=== PATIENT | female | born 2000 | race Caucasian/White ===

== ENCOUNTER 2018-10-12 10:40 | Inpatient (IN) | payer BC, MEDICAID ==
[2018-10-12] MEDS ORDERED: Sodium Chloride 0.9% 10 ML Syringe FLUSH PRN ×2 (11:14→13:09)
[2018-10-12] MEDS: Lactated Ringers 1,000 ML IV ONE ×3 (11:20→13:26)
[2018-10-12] MEDS ORDERED: Amoxicillin 875 MG Tab PO ONE (12:50)
[2018-10-12] MEDS ORDERED: cefTRIAXone 1 GM in Sodium Chloride 0.9% 50 ML IV ONE (13:00)
[2018-10-12] MEDS ORDERED: fentaNYL 100 MCG/2 ML SDV IVPUSH ONE (13:07)
[2018-10-12] MEDS ORDERED: Acetaminophen 325 MG Tab PO PRN (13:09)
[2018-10-12] MEDS ORDERED: Ondansetron 4 MG Tab.DIS PO PRN (13:09)
--- NOTE | 2018-10-12 13:26 | PCM.LDHP ---
L&D History of Present Illness - General Date of Service: 10/12/18 (childbirth) Admit Problem/Dx: Patient Status Order with Admit Dx/Problem 10/12/18 13:09 Patient Status [ADT] Routine Admission Diagnosis/Problem Admission Diagnosis/Problem Labor established Source of Information: Patient History Limitations: Reports: No Limitations - History of Present Illness Timing/Duration: Reports: minutes: (2-3), getting worse Location, : Reports: Abdomen Quality: Reports: Pressure Severity: Severe Improves with: Reports: Movement Worsens with: Reports: None - Related Data Allergies/Adverse Reactions: Allergies Allergy/AdvReac Type Severity Reaction Status Date / Time Corticosteroids Allergy Hives Verified 06/19/18 13:08 (Glucocorticoids) Home Medications: Home Meds [id number]/Dha/Fish Oil [ Gummies] 1 tab PO DAILY 04/17/18 [ History] Albuterol/Ipratropium [Combivent Respimat] 1 puff INH Q4HR PRN 06/19/18 [History ] Cetirizine [ZyrTEC] 10 mg PO BEDTIME PRN 06/19/18 [History] Sertraline [Zoloft] 50 mg PO DAILY 06/19/18 [History] hydrOXYzine HCl [hydrOXYzine] 25 mg PO BEDTIME 10/11/18 [History] Past Medical History HEENT History: Reports: Allergic Rhinitis Respiratory History: Reports: Asthma 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: , Other (See Below) : 1 Para: 0 LMP (Approximate): Other OB/BYN History: ovarian cysts Musculoskeletal History: Reports: Fracture Neurological History: Reports: Concussion Psychiatric History: Reports: Anxiety, Depression, Psych Hospitalization(s), Suicide Attempt, Suicidal Ideation, Other (See Below) Other Psychiatric History: borderline personality Dermatologic History: Reports: Urticaria - Infectious Disease History Infectious Disease History: Reports: None - Past Surgical History Respiratory Surgical History: Reports: None Neurological Surgical History: Reports: None Musculoskeletal Surgical History: Reports: None Dermatological Surgical History: Reports: None Social & Family History - Family History Family Medical History: Noncontributory - Caffeine Use Caffeine Use: Reports: Coffee Other Caffeine Use: 1 cup a day H&P Review of Systems - Review of Systems: Review Of Systems: See Below General: Reports: No Symptoms HEENT: Reports: No Symptoms Pulmonary: Reports: No Symptoms Cardiovascular: Reports: No Symptoms Gastrointestinal: Reports: No Symptoms Genitourinary: Reports: No Symptoms Musculoskeletal: Reports: No Symptoms Skin: Reports: No Symptoms Psychiatric: Reports: No Symptoms Neurological: Reports: No Symptoms Hematologic/Lymphatic: Reports: No Symptoms Immunologic: Reports: No Symptoms L&D Exam - Exam Exam: See Below - Vital Signs Vital Signs: Last Vital Signs Temp 98.9 F 10/12/18 12:00 Pulse 87 10/12/18 12:00 Resp 18 10/12/18 12:00 BP 149/91 H 10/12/18 12:00 Pulse Ox 97 10/12/18 12:00 - OB Specific Contraction Duration (sec): 30-60 Contraction Frequency (min): 3-4 Contraction Intensity: Moderate Movement: Active Heart Tones: Present Heart Tones per Min: 160 Heart Rate (FHR) Variability: Moderate (6-25 bmp) Presentation: Vertex Estimated Weight: 7-8 pounds - Olvera Score Olvera Score Cervix Position: Midposition Olvera Score Consistency: Soft Olvera Score Effacement: >80% Olvera Score Dilation: 3-4 cm Olvera Score Infant's Station: -1 ,0 Olvera Score Total: 10 - Exam General: Alert, Oriented HEENT: PERRLA Neck: Supple Lungs: Clear to Auscultation, Normal Respiratory Effort Cardiovascular: Regular Rate, Regular Rhythm GI/Abdominal Exam: Soft Genitourinary: Cervical dilitation, Enlarged uterus Back Exam: Normal Inspection, Full Range of Motion Extremities: Normal Inspection, No Pedal Edema Skin: Warm, Dry, Intact Neurological: Cranial Nerves Intact, Reflexes Equal Bilateral Psychiatric: Alert, Normal Affect, Normal Mood - Patient Data Lab Results Last 24 hrs: Laboratory Results - last 24 hr 10/12/18 Range/Units 10:49 Urine Color Yellow Urine Appearance Cloudy Urine pH 6.0 (4.5-8.0) Ur Specific [place] 1.020 (1.008-1.030) Urine Protein Negative (NEGATIVE) mg/dL Urine Glucose (UA) Normal (NEGATIVE) mg/dL Urine Ketones Negative (NEGATIVE) mg/dL Urine Occult Blood Large (NEGATIVE) Urine Nitrite Negative (NEGATIVE) Urine Bilirubin Negative (NEGATIVE) Urine Urobilinogen Normal (NORMAL) mg/dL Ur Leukocyte Esterase Large (NEGATIVE) Urine RBC 10-20 H (0-5) Urine WBC 40-50 H (0-5) Ur Epithelial Cells Moderate Amorphous Sediment Not seen Urine Bacteria Moderate Urine Mucus Few - Problem List (1) First stage of labor established SNOMED Code(s): 294496585 ICD Code: [id number] - Status: Acute Current Visit: Yes (2) SNOMED Code(s): 85336985 ICD Code: Z34.90 - ENCNTR FOR SUPRVSN OF NORMAL , UNSP, UNSP TRIMESTER Status: Acute Current Visit: Yes Qualifiers: Weeks of gestation: 40 weeks Qualified Code(s): Z3A.40 - 40 weeks gestation of Problem List Initiated/Reviewed/Updated: Yes Orders Last 24hrs: Active Orders 24 hr Category Date Time Status Patient Status [ADT] Routine ADT 10/12/18 13:09 Ordered Antiembolic Devices [RC] .Routine Care 10/12/18 13:12 Ordered Communication Order [RC] ASDIRECTED Care 10/12/18 13:09 Ordered Dietary Supplements [RC] BIDMEALS Care 10/12/18 12:52 Active Heart Tones [RC] PER UNIT ROUTINE Care 10/12/18 13:09 Ordered Non Stress Test [RC] Click to Edit Care 10/12/18 13:09 Ordered May Shower [RC] ASDIRECTED Care 10/12/18 13:09 Ordered Notify Provider Vital Signs [RC] PRN Care 10/12/18 13:09 Ordered Notify Provider [RC] PRN Care 10/12/18 13:09 Ordered OB Check [OM.PC] Click to Edit Care 10/12/18 10:48 Ordered PCEA Epidural [RC] ASDIRECTED Care 10/12/18 13:14 Ordered PCEA Epidural [RC] ASDIRECTED Care 10/12/18 13:14 Ordered Peripheral IV Care [RC] . DIRECTED Care 10/12/18 11:14 Active Up ad Karie [RC] ASDIRECTED Care 10/12/18 13:09 Ordered VTE/DVT Education [RC] Click to Edit Care 10/12/18 13:12 Ordered Vital Signs [RC] PER UNIT ROUTINE Care 10/12/18 13:09 Ordered Clear Liquid Diet [DIET] Diet 10/12/18 Dinner Ordered CBC W/O DIFF,HEMOGRAM [HEME] Routine Lab 10/12/18 13:09 Ordered Acetaminophen [Tylenol] Med 10/12/18 13:09 Ordered 650 mg PO Q4H PRN Ondansetron [Zofran ODT] Med 10/12/18 13:09 Ordered 4 mg PO Q4H PRN Oxytocin/Normal Saline [Pitocin in NS 20 Units/1,000 ML Med 10/12/18 13:15 Ordered ] 20 unit in 1,000 ml IV ONETIME Oxytocin/Normal Saline [Pitocin in NS 20 Units/1,000 ML Med 10/12/18 13:15 Ordered ] 20 unit in 1,000 ml IV TITRATE Sodium Chloride 0.9% [Saline Flush] Med 10/12/18 11:14 Active 10 ml FLUSH ASDIRECTED PRN Sodium Chloride 0.9% [Saline Flush] Med 10/12/18 13:09 Ordered 10 ml FLUSH ASDIRECTED PRN cefTRIAXone [Rocephin] 1 gm Med 10/12/18 13:00 Active Sodium Chloride 0.9% [Normal Saline] 50 ml IV ONETIME DVT/VTE Prophylaxis Reflex [OM.PC] Routine Oth 10/12/18 13:09 Ordered Epidural Catheter Management [OM.PC] Urgent Oth 10/12/18 13:14 Ordered Peripheral IV Insertion Adult [OM.PC] Routine Oth 10/12/18 11:14 Ordered Saline Lock Insert [OM.PC] Routine Oth 10/12/18 13:09 Ordered Resuscitation Status Routine Resus Stat 10/12/18 13:09 Ordered Medication Orders Acetaminophen (Tylenol) 650 mg PO Q4H PRN PRN Reason: Pain (Mild 1-3) and fever Ceftriaxone Sodium 1 gm/ (Sodium Chloride) 50 mls @ 100 mls/hr IV ONETIME ONE Stop: 10/12/18 13:29 Oxytocin/Sodium Chloride (Pitocin In Ns 20 Units/1,000 Ml) 20 unit in 1,000 mls @ 6 mls/hr IV TITRATE GAVINO; Protocol Oxytocin/Sodium Chloride (Pitocin In Ns 20 Units/1,000 Ml) 20 unit in 1,000 mls @ 999 mls/hr IV ONETIME ONE; Protocol Stop: 10/12/18 14:15 Ondansetron HCl (Zofran Odt) 4 mg PO Q4H PRN PRN Reason: Nausea/Vomiting Sodium Chloride (Saline Flush) 10 ml FLUSH ASDIRECTED PRN PRN Reason: Keep Vein Open Sodium Chloride (Saline Flush) 10 ml FLUSH ASDIRECTED PRN PRN Reason: Keep Vein Open Assessment/Plan Comment:: 10/12/18 This 17 year old G1 presented with increasing contractions. She is 40 3/7 weeks based on LMP and US, DEEPIKA 10/09/18. vaginal check at 1222 3/80/-1. Over the past hour contractions have gotten increasingly stronger. Labs: ABO A pos, HIV neg, Rubella immune. Plan will keep and tristan to observation Epidural then augment contractions with pitocin Anticipate a vaginal delivery later today. HGB and PLT pending
[2018-10-12] MEDS ORDERED: ePHEDrine 50 MG/ML SDV ONE (13:39)
[2018-10-12] MEDS ORDERED: fentaNYL 100 MCG/2 ML SDV ONE (14:01)
[2018-10-12] MEDS ORDERED: Ropivacaine 100 ML ONE (14:01)
[2018-10-12] MEDS ORDERED: Lactated Ringers 1,000 ML IV SCH (14:15)
--- NOTE | 2018-10-12 15:22 | PROC ---
DATE OF PROCEDURE: 10/12/2018 NAME OF PROCEDURE: Placement of labor epidural. INDICATION: This 17-year-old is in labor, and I have been asked to place an epidural. She is dilated to 4. We discussed risks and benefits of the procedure. She is ready to proceed. DESCRIPTION OF PROCEDURE: Her back was prepped with Betadine x3. A 2 mL skin wheal of 1% Xylocaine was injected at approximately L3-L4 and another 2 to 3 mL into the deeper tissue. A 17-gauge Tuohy needle was placed in the epidural space at that level using a loss of resistance technique. The loss of resistance was excellent. She was then given a 7 mL bolus that included 100 mcg of fentanyl and 5 mL of 1.5% Xylocaine with epinephrine. She showed no signs of problems with this test dose. An epidural catheter was then threaded approximately 3 to 4 cm into the epidural space, and the needle was removed over the catheter. The catheter was brought up over her right shoulder and taped securely in place. She was then placed on a ropivacaine infusion of 0.2% at 12 mL. The patient tolerated the procedure well. Currently, her vital signs are stable. Her color is pink. She is alert, oriented, and shows no signs of complications. Anesthesia will be called if further assistance is needed. Jake Carney CRNA /[id number]
[2018-10-12] MEDS ORDERED: diphenhydrAMINE 50 MG/ML SDV IVPUSH PRN (18:38)
[2018-10-12] MEDS ORDERED: Naloxone 0.4 MG/ML SDV IVPUSH PRN (18:38)
[2018-10-12] MEDS ORDERED: Ropivacaine 100 ML EPIDUR SCH (18:38)
--- NOTE | 2018-10-12 18:56 | PCM.PNLD ---
Labor Progress Note - VS & Meds Vital Signs: Last Vital Signs Temp 98.9 F 10/12/18 17:10 Pulse 79 10/12/18 14:35 Resp 18 10/12/18 14:35 BP 125/72 10/12/18 14:35 Pulse Ox 97 10/12/18 14:35 Active Medications: Current Medications Acetaminophen (Tylenol) 650 mg PO Q4H PRN PRN Reason: Pain (Mild 1-3) and fever Diphenhydramine HCl (Benadryl) 50 mg IVPUSH Q6H PRN PRN Reason: ITCHING Oxytocin/Sodium Chloride (Pitocin In Ns 20 Units/1,000 Ml) 20 unit in 1,000 mls @ 6 mls/hr IV TITRATE GAVINO; Protocol Last Titration: 10/12/18 18:07 Dose: 7 munits/min, 21 mls/hr Lactated Ringer's (Ringers, Lactated) 1,000 mls @ 100 mls/hr IV ASDIRECTED GAVINO Ropivacaine (Naropin 0.2%) 100 mls @ 0 mls/hr EPIDUR ASDIRECTED GAVINO; Protocol Naloxone HCl 0.4 mg/ Sodium (Chloride) 1,001 mls @ 0 mls/hr IV ASDIRECTED PRN; Protocol PRN Reason: ITCHING Naloxone HCl (Narcan) 0.1 mg IVPUSH Q5M PRN PRN Reason: IF RESP RATE LESS THAN 6 Ondansetron HCl (Zofran Odt) 4 mg PO Q4H PRN PRN Reason: Nausea/Vomiting Sodium Chloride (Saline Flush) 10 ml FLUSH ASDIRECTED PRN PRN Reason: Keep Vein Open Sodium Chloride (Saline Flush) 10 ml FLUSH ASDIRECTED PRN PRN Reason: Keep Vein Open Discontinued Medications Ephedrine Sulfate (Ephedrine Sulfate) Confirm Administered Dose 50 mg .ROUTE .STK-MED ONE Stop: 10/12/18 13:40 Fentanyl (Sublimaze) 100 mcg IVPUSH ONETIME ONE Stop: 10/12/18 13:08 Last Admin: 10/12/18 13:13 Dose: 100 mcg Fentanyl (Sublimaze) Confirm Administered Dose 100 mcg .ROUTE .STK-MED ONE Stop: 10/12/18 14:02 Lactated Ringer's (Ringers, Lactated) 1,000 mls @ 999 mls/hr IV BOLUS ONE Stop: 10/12/18 12:14 Last Admin: 10/12/18 13:26 Dose: 999 mls/hr Ceftriaxone Sodium 1 gm/ (Sodium Chloride) 50 mls @ 100 mls/hr IV ONETIME ONE Stop: 10/12/18 13:29 Last Admin: 10/12/18 13:26 Dose: 100 mls/hr Oxytocin/Sodium Chloride (Pitocin In Ns 20 Units/1,000 Ml) 20 unit in 1,000 mls @ 999 mls/hr IV ONETIME ONE; Protocol Stop: 10/12/18 14:15 Ropivacaine (Naropin 0.2%) Confirm Administered Dose 100 mls @ as directed .ROUTE .STK-MED ONE Stop: 10/12/18 14:02 - Uterine Contractions Uterine Monitoring Mode: External Iselin Contraction Frequency (min): 2-2.5 Contraction Duration (sec): 30-40 Contraction Intensity: Moderate Uterine Resting Tone: Soft - Monitoring Monitor Mode: Doppler/Auscultation Heart Rate (FHR) Baseline: 145 Heart Rate (FHR) Variability: Moderate (6-25 bmp) Accelerations: Present, 15x15 Decelerations: None Strip Review: Category I - Vaginal Exam Dilation (cm): 5 Effacement (Percent): 90/100 Station: 0 Cervical Position: Anterior Sterile Vaginal Exam Performed By: Sola Hidalgo Vaginal Exam Comment: bloody show, tried AROM - Labor Progress (Free Text) Labor Progress: 10/12/18 Making slow steady progress. Pitocin infusing contractions every 1-2 minutes. Epidural working well. planning vaginal delivery later this evening.
[2018-10-12] MEDS ORDERED: Lidocaine 1% 50 ML MDV ONE (21:11)
[2018-10-12] MEDS ORDERED: Oxytocin/Normal Saline 0 UNIT/0 ML BAG ONE (21:11)
[2018-10-12] MEDS ORDERED: Misoprostol 200 MCG Tab ONE (21:35)
[2018-10-12] MEDS ORDERED: Methylergonovine 0.2 MG/1 ML Amp ONE (21:35)
[2018-10-12] MEDS ORDERED: Carboprost Tromethamine 250 MCG/1 ML Amp ONE (21:35)
[2018-10-12] MEDS ORDERED: Methylergonovine 0.2 MG/1 ML Amp IM STA (21:44)
[2018-10-12] MEDS ORDERED: Docusate Sodium 100 MG Cap PO PRN (22:22)
[2018-10-12] MEDS ORDERED: Benzocaine 20% Top Spray 56 GM Bottle TOP PRN (22:22)
[2018-10-12] MEDS ORDERED: Hydrocortisone 2.5% Crm 30 GM Tube TOP PRN (22:22)
[2018-10-12] MEDS ORDERED: Acetaminophen 325 MG Tab, 50 Tab Bulk Bottle PO PRN (22:22)
[2018-10-12] MEDS ORDERED: Ibuprofen 200 MG Tab, 24 Tab Bulk Bottle PO PRN (22:22)
[2018-10-12] MEDS ORDERED: Witch Hazel Medicated Pads 100/Jar TOP PRN (22:22)
--- NOTE | 2018-10-12 22:40 | PCM.DEL ---
L & D Note - General Info Date of Service: 10/12/18 (vaginal delivery) Mother's Due Date: 10/09/18 - Delivery Note Labor: Spontaneous Delivery Outcome: Livebirth Delivery Method: Spontaneous Vaginal Delivery-Single Delivery Mode: Spontaneous Presentation: Right Occiput Anterior (SETH) Nuchal Cord: Present (cord double clamped and cut, unable to reduce manually ) Anesthesia Type: Epidural Amniotic Fluid Description: Meconium Stained Episiotomy Type: None Laceration: 2nd Degree, Labial, Sulcus Suture type: Vicryl Suture size: 3-0 Placenta: Intact, Spontaneous Cord: 3 Vessels Estimated Blood Loss: 500 Resuscitation Needed: No [place]: Stimulated, Warmed, [place] Used Provider: Sola Hidalgo Score 1 min: 7 (2 tone, 1 color) Score 5 min: 8 (1 tone, 1 color) Second Stage Interventions: Reports: Second Nurse Reviewed Heart Tones, Encouragement Given, Pushing Effectively, Pushing, McRobert's Position Delivery Comments (Free Text/Narrative):: 10/12/18 This 17 year old G1 now P1 who is 40 3/7 weeks gestation presented in early labor this morning. /-1 at 1222. Contractions were painful and she had been up all night laboring. She was admitted and fluid, IV antibiotic for a UTI were given. An epidural was placed and she was then comfortable. Pitocin was used to augment her contractions and at 1844 she was 5/90-100/0 active labor. She then progressed to complete by 2053. At 2130 she had a vaginal of a viable female infant in SETH position. There was a tight nuchal cord which was clamped and cut she then delivered spontaneously. Meconium fluid present. Baby cried spontaneously on mother's chest. of 7-8-9. Three vessel cord. weight 9-6. The placenta was expressed spontaneously intact. Laceration of bilateral labia and sulcus. Brisk bleeding from lacerations, IM Methergine was given in addition to the active management of the third stage.All repaired with 3-0 vicryl. No lacerations of the vagina, rectum,cervix , or perineum. EBL 500cc, Mother and to in stable condition. First stage 5042-6462 second stage 2615-2908 third Stage 5384-6649 Induction Criteria - Augmentation Estimated Pelvis: Reports: Adequate Weight Estimated:: Reports: AGA Reassuring Monitoring Strip: Yes Absence of Tachy Systole: Yes - General Info Date of Service: 10/12/18 Functional Status: Reports: Pain Controlled - Review of Systems General: Reports: No Symptoms HEENT: Reports: No Symptoms Pulmonary: Reports: No Symptoms Cardiovascular: Reports: No Symptoms Gastrointestinal: Reports: No Symptoms Genitourinary: Reports: No Symptoms Musculoskeletal: Reports: No Symptoms Skin: Reports: No Symptoms Neurological: Reports: No Symptoms Psychiatric: Reports: No Symptoms - Patient Data Vitals - Most Recent: Last Vital Signs Temp 99 F 10/12/18 20:37 Pulse 80 10/12/18 19:21 Resp 16 10/12/18 19:21 BP 132/82 10/12/18 19:21 Pulse Ox 97 10/12/18 19:21 I&O - Last 24 Hours: Intake & Output 10/12/18 10/12/18 10/12/18 06:59 14:59 22:59 Intake Total 600 Output Total 800 Balance 600 -800 Lab Results Last 24 Hours: Laboratory Results - last 24 hr 10/12/18 10/12/18 10/12/18 Range/Units 10:49 13:09 13:27 WBC 13.7 H (4.5-11.0) K/uL RBC 3.82 (3.30-5.50) M/uL Hgb 10.3 L D (12.0-15.0) g/dL Hct 32.3 L (36.0-48.0) % MCV 85 (80-98) fL MCH 27 (27-31) pg MCHC 32 (32-36) % Plt Count 203 (150-400) K/uL Urine Color Yellow Urine Appearance Cloudy Urine pH 6.0 (4.5-8.0) Ur Specific [place] 1.020 (1.008-1.030) Urine Protein Negative (NEGATIVE) mg/dL Urine Glucose (UA) Normal (NEGATIVE) mg/dL Urine Ketones Negative (NEGATIVE) mg/dL Urine Occult Blood Large (NEGATIVE) Urine Nitrite Negative (NEGATIVE) Urine Bilirubin Negative (NEGATIVE) Urine Urobilinogen Normal (NORMAL) mg/dL Ur Leukocyte Esterase Large (NEGATIVE) Urine RBC 10-20 H (0-5) Urine WBC 40-50 H (0-5) Ur Epithelial Cells Moderate Amorphous Sediment Not seen Urine Bacteria Moderate Urine Mucus Few Urine Opiates Screen Negative (NEGATIVE) Ur Oxycodone Screen Negative (NEGATIVE) Urine Methadone Screen Negative (NEGATIVE) Ur Propoxyphene Screen Negative (NEGATIVE) Ur Barbiturates Screen Negative (NEGATIVE) Ur Tricyclics Screen Negative (NEGATIVE) Ur Phencyclidine Scrn Negative (NEGATIVE) Ur Amphetamine Screen Negative (NEGATIVE) U Methamphetamines Scrn Negative (NEGATIVE) Urine MDMA Screen Negative (NEGATIVE) U Benzodiazepines Scrn Negative (NEGATIVE) U Cocaine Metab Screen Negative (NEGATIVE) U Marijuana (THC) Screen Negative (NEGATIVE) Med Orders - Current: Current Medications Acetaminophen (Tylenol) 650 mg PO Q4H PRN PRN Reason: Pain (Mild 1-3) and fever Last Admin: 10/12/18 20:37 Dose: 650 mg Acetaminophen (Tylenol Bulk Bottle) 325 mg PO Q4H PRN PRN Reason: Pain Benzocaine (Traj-E-Ipbrvyq 20% Adams) 0 gm TOP Q4H PRN PRN Reason: Perineal Comfort Measure Diphenhydramine HCl (Benadryl) 50 mg IVPUSH Q6H PRN PRN Reason: ITCHING Docusate Sodium (Colace) 100 mg PO BID PRN PRN Reason: Constipation Ferrous Sulfate (Ferrous Sulfate) 325 mg PO WITHBREAKFAST GAVINO Hydrocortisone (Proctozone-Hc 2.5% Crm) 1 gm TOP ASDIRECTED PRN PRN Reason: Itching Oxytocin/Sodium Chloride (Pitocin In Ns 20 Units/1,000 Ml) 20 unit in 1,000 mls @ 6 mls/hr IV TITRATE GAVINO; Protocol Last Titration: 10/12/18 21:31 Dose: 999 mls/hr Lactated Ringer's (Ringers, Lactated) 1,000 mls @ 100 mls/hr IV ASDIRECTED GAVINO Last Admin: 10/12/18 18:30 Dose: 100 mls/hr Ropivacaine (Naropin 0.2%) 100 mls @ 0 mls/hr EPIDUR ASDIRECTED GAVINO; Protocol Last Admin: 10/12/18 20:37 Dose: 12 mls/hr, 12 mls/hr Naloxone HCl 0.4 mg/ Sodium (Chloride) 1,001 mls @ 0 mls/hr IV ASDIRECTED PRN; Protocol PRN Reason: ITCHING Ibuprofen (Motrin Bulk Bottle) 600 mg PO Q6H PRN PRN Reason: Pain Naloxone HCl (Narcan) 0.1 mg IVPUSH Q5M PRN PRN Reason: IF RESP RATE LESS THAN 6 Ondansetron HCl (Zofran Odt) 4 mg PO Q4H PRN PRN Reason: Nausea/Vomiting Sodium Chloride (Saline Flush) 10 ml FLUSH ASDIRECTED PRN PRN Reason: Keep Vein Open Sodium Chloride (Saline Flush) 10 ml FLUSH ASDIRECTED PRN PRN Reason: Keep Vein Open Witch Dunia (Tucks) 1 pad TOP ASDIRECTED PRN PRN Reason: Hemorrhoids Discontinued Medications Carboprost Tromethamine (Hemabate Ds) Confirm Administered Dose 250 mcg .ROUTE .STK-MED ONE Stop: 10/12/18 21:36 Last Admin: 10/12/18 21:51 Dose: Not Given Ephedrine Sulfate (Ephedrine Sulfate) Confirm Administered Dose 50 mg .ROUTE .STK-MED ONE Stop: 10/12/18 13:40 Last Admin: 10/12/18 20:19 Dose: Not Given Fentanyl (Sublimaze) 100 mcg IVPUSH ONETIME ONE Stop: 10/12/18 13:08 Last Admin: 10/12/18 13:13 Dose: 100 mcg Fentanyl (Sublimaze) Confirm Administered Dose 100 mcg .ROUTE .STK-MED ONE Stop: 10/12/18 14:02 Lactated Ringer's (Ringers, Lactated) 1,000 mls @ 999 mls/hr IV BOLUS ONE Stop: 10/12/18 12:14 Last Admin: 10/12/18 13:26 Dose: 999 mls/hr Ceftriaxone Sodium 1 gm/ (Sodium Chloride) 50 mls @ 100 mls/hr IV ONETIME ONE Stop: 10/12/18 13:29 Last Admin: 10/12/18 13:26 Dose: 100 mls/hr Oxytocin/Sodium Chloride (Pitocin In Ns 20 Units/1,000 Ml) 20 unit in 1,000 mls @ 999 mls/hr IV ONETIME ONE; Protocol Stop: 10/12/18 14:15 Ropivacaine (Naropin 0.2%) Confirm Administered Dose 100 mls @ as directed .ROUTE .STK-MED ONE Stop: 10/12/18 14:02 Oxytocin/Sodium Chloride (Pitocin In Ns 20 Units/1,000 Ml) Confirm Administered Dose 20 unit in 1,000 mls @ as directed .ROUTE .STK-MED ONE Stop: 10/12/18 21:12 Lidocaine HCl (Xylocaine 1%) Confirm Administered Dose 100 ml .ROUTE .STK-MED ONE Stop: 10/12/18 21:12 Methylergonovine Maleate (Methergine) Confirm Administered Dose 0.2 mg .ROUTE .STK-MED ONE Stop: 10/12/18 21:36 Last Admin: 10/12/18 21:51 Dose: Not Given Methylergonovine Maleate (Methergine) 0.2 mg IM ONETIME STA Stop: 10/12/18 21:45 Misoprostol (Cytotec) Confirm Administered Dose 800 mcg .ROUTE .STK-MED ONE Stop: 10/12/18 21:36 Last Admin: 10/12/18 21:52 Dose: Not Given - Exam General: Alert, Oriented HEENT: Pupils Equal, Pupils Reactive, EOMI, Mucous Membr. Moist/[place] Neck: Supple Lungs: Normal Respiratory Effort, Crackles Cardiovascular: Regular Rate, Regular Rhythm GI/Abdominal Exam: Normal Bowel Sounds, Soft, Non-Tender, No Mass (Female) Exam: Cervical Dilatation, Enlarged Uterus, Vaginal Bleeding, Vaginal Tears Back Exam: Normal Inspection, Full Range of Motion Extremities: Normal Inspection, Normal Range of Motion, No Pedal Edema, Normal Capillary Refill Skin: Warm, Dry, Intact Neurological: No New Focal Deficit Psy/Mental Status: Alert, Normal Affect, Normal Mood - Problem List & Annotations (1) First stage of labor established SNOMED Code(s): 656941641 Code(s): NKE5942 - Status: Acute Current Visit: Yes (2) SNOMED Code(s): 68318574 Code(s): Z34.90 - ENCNTR FOR SUPRVSN OF NORMAL , UNSP, UNSP TRIMESTER Status: Acute Current Visit: Yes Qualifiers: Weeks of gestation: 40 weeks Qualified Code(s): Z3A.40 - 40 weeks gestation of (3) Vaginal tear resulting from childbirth SNOMED Code(s): 782962449 Code(s): O71.4 - OBSTETRIC HIGH VAGINAL LACERATION ALONE Status: Acute Current Visit: Yes (4) Vaginal delivery SNOMED Code(s): 991080411 Code(s): O80 - ENCOUNTER FOR FULL-TERM UNCOMPLICATED DELIVERY Status: Acute Current Visit: Yes - Problem List Review Problem List Initiated/Reviewed/Updated: Yes - My Orders Last 24 Hours: My Active Orders 10/12/18 10:48 OB Check [OM.PC] Click to Edit 10/12/18 11:14 Peripheral IV Care [RC] . DIRECTED Sodium Chloride 0.9% [Saline Flush] 10 ml FLUSH ASDIRECTED PRN Peripheral IV Insertion Adult [OM.PC] Routine 10/12/18 12:52 Dietary Supplements [RC] BIDMEALS 10/12/18 13:09 Communication Order [RC] ASDIRECTED Heart Tones [RC] PER UNIT ROUTINE Non Stress Test [RC] Click to Edit May Shower [RC] ASDIRECTED Notify Provider Vital Signs [RC] PRN Notify Provider [RC] PRN Up ad Karie [RC] ASDIRECTED Vital Signs [RC] PER UNIT ROUTINE Acetaminophen [Tylenol] 650 mg PO Q4H PRN Ondansetron [Zofran ODT] 4 mg PO Q4H PRN Sodium Chloride 0.9% [Saline Flush] 10 ml FLUSH ASDIRECTED PRN DVT/VTE Prophylaxis Reflex [OM.PC] Routine Saline Lock Insert [OM.PC] Routine Resuscitation Status Routine 10/12/18 13:12 Antiembolic Devices [RC] .Routine VTE/DVT Education [RC] Click to Edit 10/12/18 13:14 PCEA Epidural [RC] ASDIRECTED Epidural Catheter Management [OM.PC] Urgent 10/12/18 13:15 Oxytocin/Normal Saline [Pitocin in NS 20 Units/1,000 ML] 20 unit in 1,000 ml IV TITRATE 10/12/18 14:15 Lactated Ringers [Ringers, Lactated] 1,000 ml IV ASDIRECTED 10/12/18 14:45 Insert Almaraz Catheter [Insert Urinary Catheter] [OM.PC] Q24H 10/12/18 16:24 Urinary Catheter Assessment [RC] ASDIRECTED 10/12/18 18:38 Naloxone [Narcan] 0.1 mg IVPUSH Q5M PRN Naloxone [Narcan] 0.4 mg Sodium Chloride 0.9% [Normal Saline] 1,000 ml IV ASDIRECTED Ropivacaine [Naropin 0.2%] 100 ml EPIDUR ASDIRECTED diphenhydrAMINE [Benadryl] 50 mg IVPUSH Q6H PRN 10/12/18 22:22 Patient Status [ADT] Routine Vital Signs [RC] PFP Acetaminophen [Tylenol Bulk Bottle] 325 mg PO Q4H PRN Benzocaine [Qtic-S-Bagyrdc 20% Adams] See Dose Instructions TOP Q4H PRN Docusate Sodium [Colace] 100 mg PO BID PRN Hydrocortisone [Proctozone-HC 2.5% Crm] 1 gm TOP ASDIRECTED PRN Ibuprofen [Motrin Bulk Bottle] 600 mg PO Q6H PRN Witch [place]ia [Tucks] 1 pad TOP ASDIRECTED PRN Assess Lochia [WOMSER] Per Unit Routine Assess Uterine Involution [WOMSER] Per Unit Routine 10/12/18 22:23 Ice Therapy [OM.PC] Per Unit Routine Perineal Care [OM.PC] Per Unit Routine Peripheral IV Discontinue [OM.PC] Routine Sitz Bath [OM.PC] Per Unit Routine 10/12/18 Dinner Clear Liquid Diet [DIET] 10/13/18 05:11 CBC WITH AUTO DIFF [HEME] AM 10/13/18 08:00 Ferrous Sulfate 325 mg PO WITHBREAKFAST 10/13/18 Breakfast Regular Diet [DIET] - Assessment Assessment:: 10/12/18 17 year old without complications bilateral labial tears with sulcus extensions, repaired, heavy bleeding initially. bottle feeding infant Asthma, stable - Plan Plan:: 10/12/18 This 17 year old G1 presented with increasing contractions. She is 40 3/7 weeks based on LMP and US, DEEPIKA 10/09/18. vaginal check at 1222 3/80/-1. Over the past hour contractions have gotten increasingly stronger. Labs: ABO A pos, HIV neg, Rubella immune. Plan will keep and tristan to observation Epidural then augment contractions with pitocin Anticipate a vaginal delivery later today. HGB and PLT pending 10/12/18 routine post cares CBC in Am, start iron in AM as well Ice to bottom until morning PHILIPP medications 24-48 hour stay.
[2018-10-12] MEDS ORDERED: Methylergonovine 0.2 MG Tab PO PRN (22:56)
[2018-10-13] MEDS ORDERED: Acetaminophen 325 MG Tab, 50 Tab Bulk Bottle PO PRN (07:27)
[2018-10-13] MEDS ORDERED: Ferrous Sulfate 325 MG Tab PO SCH (08:00)
--- NOTE | 2018-10-13 10:14 | PCM.PNPP ---
- General Info Date of Service: 10/13/18 (PPD 1) Admission Dx/Problem (Free Text): Patient Status Order with Admit Dx/Problem 10/12/18 13:09 Patient Status [ADT] Routine Admission Diagnosis/Problem Admission Diagnosis/Problem Labor established Functional Status: Reports: Pain Controlled, Tolerating Diet, Ambulating, Urinating - Review of Systems General: Reports: No Symptoms HEENT: Reports: No Symptoms Pulmonary: Reports: No Symptoms Cardiovascular: Reports: No Symptoms Gastrointestinal: Reports: No Symptoms Genitourinary: Reports: No Symptoms Musculoskeletal: Reports: No Symptoms Skin: Reports: No Symptoms Neurological: Reports: No Symptoms Psychiatric: Reports: Anxiety (long standing history of anxiety, depression, wants to start medication) - General Info Date of Service: 10/13/18 - Patient Data Vital Signs - Most Recent: Last Vital Signs Temp 97.2 F 10/13/18 07:47 Pulse 78 10/13/18 07:47 Resp 18 10/13/18 07:47 BP 101/61 10/13/18 07:47 Pulse Ox 98 10/13/18 07:47 I&O - Last 24 Hours: Intake & Output 10/12/18 10/13/18 10/13/18 22:59 06:59 14:59 Intake Total 3099 Output Total 800 Balance -800 3099 Lab Results - Last 24 Hours: Laboratory Results - last 24 hr 10/12/18 10/12/18 10/12/18 Range/Units 10:49 13:09 13:27 WBC 13.7 H (4.5-11.0) K/uL RBC 3.82 (3.30-5.50) M/uL Hgb 10.3 L D (12.0-15.0) g/dL Hct 32.3 L (36.0-48.0) % MCV 85 (80-98) fL MCH 27 (27-31) pg MCHC 32 (32-36) % Plt Count 203 (150-400) K/uL Neut % (Auto) (36-66) % Lymph % (Auto) (24-44) % [place] % (Auto) (2-6) % Eos % (Auto) (2-4) % Baso % (Auto) (0-1) % Urine Color Yellow Urine Appearance Cloudy Urine pH 6.0 (4.5-8.0) Ur Specific [place] 1.020 (1.008-1.030) Urine Protein Negative (NEGATIVE) mg/dL Urine Glucose (UA) Normal (NEGATIVE) mg/dL Urine Ketones Negative (NEGATIVE) mg/dL Urine Occult Blood Large (NEGATIVE) Urine Nitrite Negative (NEGATIVE) Urine Bilirubin Negative (NEGATIVE) Urine Urobilinogen Normal (NORMAL) mg/dL Ur Leukocyte Esterase Large (NEGATIVE) Urine RBC 10-20 H (0-5) Urine WBC 40-50 H (0-5) Ur Epithelial Cells Moderate Amorphous Sediment Not seen Urine Bacteria Moderate Urine Mucus Few Urine Opiates Screen Negative (NEGATIVE) Ur Oxycodone Screen Negative (NEGATIVE) Urine Methadone Screen Negative (NEGATIVE) Ur Propoxyphene Screen Negative (NEGATIVE) Ur Barbiturates Screen Negative (NEGATIVE) Ur Tricyclics Screen Negative (NEGATIVE) Ur Phencyclidine Scrn Negative (NEGATIVE) Ur Amphetamine Screen Negative (NEGATIVE) U Methamphetamines Scrn Negative (NEGATIVE) Urine MDMA Screen Negative (NEGATIVE) U Benzodiazepines Scrn Negative (NEGATIVE) U Cocaine Metab Screen Negative (NEGATIVE) U Marijuana (THC) Screen Negative (NEGATIVE) 10/13/18 Range/Units 05:15 WBC 14.3 H (4.5-11.0) K/uL RBC 3.42 (3.30-5.50) M/uL Hgb 9.4 L (12.0-15.0) g/dL Hct 29.2 L (36.0-48.0) % MCV 85 (80-98) fL MCH 28 (27-31) pg MCHC 32 (32-36) % Plt Count 162 (150-400) K/uL Neut % (Auto) 78 H (36-66) % Lymph % (Auto) 11 L (24-44) % [place] % (Auto) 10 H (2-6) % Eos % (Auto) 1 L (2-4) % Baso % (Auto) 0 (0-1) % Urine Color Urine Appearance Urine pH (4.5-8.0) Ur Specific [place] (1.008-1.030) Urine Protein (NEGATIVE) mg/dL Urine Glucose (UA) (NEGATIVE) mg/dL Urine Ketones (NEGATIVE) mg/dL Urine Occult Blood (NEGATIVE) Urine Nitrite (NEGATIVE) Urine Bilirubin (NEGATIVE) Urine Urobilinogen (NORMAL) mg/dL Ur Leukocyte Esterase (NEGATIVE) Urine RBC (0-5) Urine WBC (0-5) Ur Epithelial Cells Amorphous Sediment Urine Bacteria Urine Mucus Urine Opiates Screen (NEGATIVE) Ur Oxycodone Screen (NEGATIVE) Urine Methadone Screen (NEGATIVE) Ur Propoxyphene Screen (NEGATIVE) Ur Barbiturates Screen (NEGATIVE) Ur Tricyclics Screen (NEGATIVE) Ur Phencyclidine Scrn (NEGATIVE) Ur Amphetamine Screen (NEGATIVE) U Methamphetamines Scrn (NEGATIVE) Urine MDMA Screen (NEGATIVE) U Benzodiazepines Scrn (NEGATIVE) U Cocaine Metab Screen (NEGATIVE) U Marijuana (THC) Screen (NEGATIVE) Med Orders - Current: Current Medications Acetaminophen (Tylenol Bulk Bottle) 325 - 650 mg PO Q4H PRN PRN Reason: Pain Benzocaine (Xmdf-[id number]-Pegyppf 20% [place]) 0 gm TOP Q4H PRN PRN Reason: Perineal Comfort Measure Last Admin: 10/12/18 23:08 Dose: 1 bottle Diphenhydramine HCl (Benadryl) 50 mg IVPUSH Q6H PRN PRN Reason: ITCHING Docusate Sodium (Colace) 100 mg PO BID PRN PRN Reason: Constipation Ferrous Sulfate (Ferrous Sulfate) 325 mg PO WITHBREAKFAST GAVINO Last Admin: 10/13/18 08:57 Dose: 325 mg Hydrocortisone (Proctozone-Hc 2.5% Crm) 1 gm TOP ASDIRECTED PRN PRN Reason: Itching Naloxone HCl 0.4 mg/ Sodium (Chloride) 1,001 mls @ 0 mls/hr IV ASDIRECTED PRN; Protocol PRN Reason: ITCHING Ibuprofen (Motrin Bulk Bottle) 600 mg PO Q6H PRN PRN Reason: Pain Last Admin: 10/12/18 23:07 Dose: 1 bottle Methylergonovine Maleate (Methergine) 0.2 mg PO TID PRN PRN Reason: Bleeding Last Admin: 10/12/18 23:33 Dose: 0.2 mg Naloxone HCl (Narcan) 0.1 mg IVPUSH Q5M PRN PRN Reason: IF RESP RATE LESS THAN 6 Ondansetron HCl (Zofran Odt) 4 mg PO Q4H PRN PRN Reason: Nausea/Vomiting Sodium Chloride (Saline Flush) 10 ml FLUSH ASDIRECTED PRN PRN Reason: Keep Vein Open Witch Dunia (Tucks) 1 pad TOP ASDIRECTED PRN PRN Reason: Hemorrhoids Last Admin: 10/12/18 23:08 Dose: 1 box Discontinued Medications Acetaminophen (Tylenol) 650 mg PO Q4H PRN PRN Reason: Pain (Mild 1-3) and fever Last Admin: 10/12/18 20:37 Dose: 650 mg Acetaminophen (Tylenol Bulk Bottle) 325 mg PO Q4H PRN PRN Reason: Pain Last Admin: 10/12/18 23:07 Dose: 1 bottle Carboprost Tromethamine (Hemabate Ds) Confirm Administered Dose 250 mcg .ROUTE .STK-MED ONE Stop: 10/12/18 21:36 Last Admin: 10/12/18 21:51 Dose: Not Given Ephedrine Sulfate (Ephedrine Sulfate) Confirm Administered Dose 50 mg .ROUTE .STK-MED ONE Stop: 10/12/18 13:40 Last Admin: 10/12/18 20:19 Dose: Not Given Fentanyl (Sublimaze) 100 mcg IVPUSH ONETIME ONE Stop: 10/12/18 13:08 Last Admin: 10/12/18 13:13 Dose: 100 mcg Fentanyl (Sublimaze) Confirm Administered Dose 100 mcg .ROUTE .STK-MED ONE Stop: 10/12/18 14:02 Lactated Ringer's (Ringers, Lactated) 1,000 mls @ 999 mls/hr IV BOLUS ONE Stop: 10/12/18 12:14 Last Admin: 10/12/18 13:26 Dose: 999 mls/hr Ceftriaxone Sodium 1 gm/ (Sodium Chloride) 50 mls @ 100 mls/hr IV ONETIME ONE Stop: 10/12/18 13:29 Last Admin: 10/12/18 13:26 Dose: 100 mls/hr Oxytocin/Sodium Chloride (Pitocin In Ns 20 Units/1,000 Ml) 20 unit in 1,000 mls @ 6 mls/hr IV TITRATE GAVINO; Protocol Last Titration: 10/12/18 21:50 Dose: 125 mls/hr Oxytocin/Sodium Chloride (Pitocin In Ns 20 Units/1,000 Ml) 20 unit in 1,000 mls @ 999 mls/hr IV ONETIME ONE; Protocol Stop: 10/12/18 14:15 Last Admin: 10/12/18 22:33 Dose: 999 mls/hr, 999 mls/hr Lactated Ringer's (Ringers, Lactated) 1,000 mls @ 100 mls/hr IV ASDIRECTED [facility] Last Admin: 10/12/18 18:30 Dose: 100 mls/hr Ropivacaine (Naropin 0.2%) Confirm Administered Dose 100 mls @ as directed .ROUTE .STK-MED ONE Stop: 10/12/18 14:02 Ropivacaine (Naropin 0.2%) 100 mls @ 0 mls/hr EPIDUR ASDIRECTED [facility]; Protocol Last Admin: 10/12/18 20:37 Dose: 12 mls/hr, 12 mls/hr Oxytocin/Sodium Chloride (Pitocin In Ns 20 Units/1,000 Ml) Confirm Administered Dose 20 unit in 1,000 mls @ as directed .ROUTE .STK-MED ONE Stop: 10/12/18 21:12 Last Admin: 10/12/18 22:33 Dose: Not Given Lidocaine HCl (Xylocaine 1%) Confirm Administered Dose 100 ml .ROUTE .STK-MED ONE Stop: 10/12/18 21:12 Last Admin: 10/12/18 22:33 Dose: Not Given Methylergonovine Maleate (Methergine) Confirm Administered Dose 0.2 mg .ROUTE .STK-MED ONE Stop: 10/12/18 21:36 Last Admin: 10/12/18 21:51 Dose: Not Given Methylergonovine Maleate (Methergine) 0.2 mg IM ONETIME STA Stop: 10/12/18 21:45 Last Admin: 10/12/18 22:33 Dose: 0.2 mg Misoprostol (Cytotec) Confirm Administered Dose 800 mcg .ROUTE .STK-MED ONE Stop: 10/12/18 21:36 Last Admin: 10/12/18 21:52 Dose: Not Given - Interaction Disposition, : [place] in Room with Family Interaction: Holding Infant Feeding: Bottle Fed Infant Support Person: Significant Other - Recovery Exam Fundal Tone: Firm Fundal Level: At Umbilicus Fundal Placement: Left Lochia Amount: Moderate Lochia Color: Rubra/Red Perineum Description: Edematous, Hemorrhoids Other Perinuem Description: digital exam, repair intact. No hematoma, very swollen bottom Episiotomy/Laceration: Approximated Bladder Status: Voiding Urinary Elimination: Voided Other Urinary Elimination, : due to void - Exam General: Alert, Oriented HEENT: Pupils Equal, Pupils Reactive, EOMI Neck: Supple Lungs: Clear to Auscultation, Normal Respiratory Effort Cardiovascular: Regular Rate, Regular Rhythm GI/Abdominal Exam: Soft, Pelvis Stable Extremities: Normal Inspection, Normal Range of Motion, Non-Tender, Normal Capillary Refill, Pedal Edema Skin: Warm, Dry, Intact Wound/Incisions: Healing Well Neurological: No New Focal Deficit Psy/Mental Status: Alert, Normal Affect, Anxious - Problem List & Annotations (1) First stage of labor established SNOMED Code(s): 947031168 Code(s): BVV3508 - Status: Acute Current Visit: Yes (2) SNOMED Code(s): 45418223 Code(s): Z34.90 - ENCNTR FOR SUPRVSN OF NORMAL , UNSP, UNSP TRIMESTER Status: Acute Current Visit: Yes Qualifiers: Weeks of gestation: 40 weeks Qualified Code(s): Z3A.40 - 40 weeks gestation of (3) Vaginal tear resulting from childbirth SNOMED Code(s): 635757919 Code(s): O71.4 - OBSTETRIC HIGH VAGINAL LACERATION ALONE Status: Acute Current Visit: Yes (4) Vaginal delivery SNOMED Code(s): 572806860 Code(s): O80 - ENCOUNTER FOR FULL-TERM UNCOMPLICATED DELIVERY Status: Acute Current Visit: Yes (5) Anxiety and depression SNOMED Code(s): 498978353 Code(s): F41.9 - ANXIETY DISORDER, UNSPECIFIED; F32.9 - MAJOR DEPRESSIVE DISORDER, SINGLE EPISODE, UNSPECIFIED Status: Acute Current Visit: Yes - Problem List Review Problem List Initiated/Reviewed/Updated: Yes - My Orders Last 24 Hours: My Active Orders 10/12/18 10:48 OB Check [OM.PC] Click To Edit 10/12/18 11:14 Peripheral IV Care [RC] . DIRECTED Sodium Chloride 0.9% [Saline Flush] 10 ml FLUSH ASDIRECTED PRN Peripheral IV Insertion Adult [OM.PC] Routine 10/12/18 12:52 Dietary Supplements [RC] BIDMEALS 10/12/18 13:09 Communication Order [RC] ASDIRECTED May Shower [RC] ASDIRECTED Notify Provider Vital Signs [RC] PRN Notify Provider [RC] PRN Up ad Karie [RC] ASDIRECTED Vital Signs [RC] PER UNIT ROUTINE Ondansetron [Zofran ODT] 4 mg PO Q4H PRN DVT/VTE Prophylaxis Reflex [OM.PC] Routine Saline Lock Insert [OM.PC] Routine Resuscitation Status Routine 10/12/18 13:12 Antiembolic Devices [RC] .Routine VTE/DVT Education [RC] Click to Edit 10/12/18 13:14 Epidural Catheter Management [OM.PC] Urgent 10/12/18 14:45 Insert Almaraz Catheter [Insert Urinary Catheter] [OM.PC] Q24H 10/12/18 18:38 Naloxone [Narcan] 0.1 mg IVPUSH Q5M PRN Naloxone [Narcan] 0.4 mg Sodium Chloride 0.9% [Normal Saline] 1,000 ml IV ASDIRECTED diphenhydrAMINE [Benadryl] 50 mg IVPUSH Q6H PRN 10/12/18 22:22 Patient Status [ADT] Routine Vital Signs [RC] PFP Benzocaine [Ctrx-V-Qugezas 20% [place]] See Dose Instructions TOP Q4H PRN Docusate Sodium [Colace] 100 mg PO BID PRN Hydrocortisone [Proctozone-HC 2.5% Crm] 1 gm TOP ASDIRECTED PRN Ibuprofen [Motrin Bulk Bottle] 600 mg PO Q6H PRN Witch Dunia [Tucks] 1 pad TOP ASDIRECTED PRN Assess Lochia [WOMSER] Per Unit Routine Assess Uterine Involution [WOMSER] Per Unit Routine 10/12/18 22:23 Ice Therapy [OM.PC] Per Unit Routine Perineal Care [OM.PC] Per Unit Routine Peripheral IV Discontinue [OM.PC] Routine Sitz Bath [OM.PC] Per Unit Routine 10/12/18 22:56 Methylergonovine [Methergine] 0.2 mg PO TID PRN 10/13/18 07:27 Acetaminophen [Tylenol Bulk Bottle] 325 - 650 mg PO Q4H PRN 10/13/18 08:00 Ferrous Sulfate 325 mg PO WITHBREAKFAST 10/13/18 Breakfast Regular Diet [DIET] - Assessment Assessment:: 10/12/18 17 year old without complications bilateral labial tears with sulcus extensions, repaired, heavy bleeding initially. bottle feeding infant Asthma, stable 10/13/18 Doing well, mood anxious wants to start medication eating voiding mild discomfort Flow light very happy with baby - Plan Plan:: 10/12/18 This 17 year old G1 presented with increasing contractions. She is 40 3/7 weeks based on LMP and US, DEEPIKA 10/09/18. vaginal check at 1222 3/80/-1. Over the past hour contractions have gotten increasingly stronger. Labs: ABO A pos, HIV neg, Rubella immune. Plan will keep and admit to observation Epidural then augment contractions with pitocin Anticipate a vaginal delivery later today. HGB and PLT pending 10/12/18 routine post cares CBC in Am, start iron in AM as well Ice to bottom until morning PHILIPP medications 24-48 hour stay. 10/13/18 Will start BuSpar and Zoloft today On iron and stool softener, HGB 9.4 Encouraged ambulation and sitz baths today Scripts written for anxioety and depression home in AM
[2018-10-13] MEDS ORDERED: Sertraline 50 MG Tab PO ONE (11:00)
[2018-10-13] MEDS ORDERED: busPIRone 10 MG Tab PO SCH (14:00)
--- NOTE | 2018-10-14 08:35 | PCM.PNPP ---
- General Info Date of Service: 10/14/18 (PPD 2 D/C) Admission Dx/Problem (Free Text): Patient Status Order with Admit Dx/Problem 10/12/18 13:09 Patient Status [ADT] Routine Admission Diagnosis/Problem Admission Diagnosis/Problem Labor established Functional Status: Reports: Pain Controlled, Ambulating, Urinating - Review of Systems General: Reports: No Symptoms HEENT: Reports: No Symptoms Pulmonary: Reports: No Symptoms Cardiovascular: Reports: No Symptoms Gastrointestinal: Reports: No Symptoms Genitourinary: Reports: No Symptoms Musculoskeletal: Reports: No Symptoms Skin: Reports: No Symptoms Neurological: Reports: No Symptoms Psychiatric: Reports: No Symptoms - General Info Date of Service: 10/14/18 - Patient Data Vital Signs - Most Recent: Last Vital Signs Temp 97.1 F 10/14/18 07:00 Pulse 90 10/14/18 07:00 Resp 18 10/14/18 07:00 BP 121/73 10/14/18 07:00 Pulse Ox 98 10/14/18 07:00 I&O - Last 24 Hours: Intake & Output 10/13/18 10/14/18 10/14/18 22:59 06:59 14:59 Intake Total 750 900 Balance 750 900 Med Orders - Current: Current Medications Acetaminophen (Tylenol Bulk Bottle) 325 - 650 mg PO Q4H PRN PRN Reason: Pain Benzocaine (Ktif-F-Abelcyr 20% [place]) 0 gm TOP Q4H PRN PRN Reason: Perineal Comfort Measure Last Admin: 10/12/18 23:08 Dose: 1 bottle Diphenhydramine HCl (Benadryl) 50 mg IVPUSH Q6H PRN PRN Reason: ITCHING Docusate Sodium (Colace) 100 mg PO BID PRN PRN Reason: Constipation Last Admin: 10/13/18 21:25 Dose: 100 mg Ferrous Sulfate (Ferrous Sulfate) 325 mg PO WITHBREAKFAST GAVINO Last Admin: 10/13/18 08:57 Dose: 325 mg Hydrocortisone (Proctozone-Hc 2.5% Crm) 1 gm TOP ASDIRECTED PRN PRN Reason: Itching Naloxone HCl 0.4 mg/ Sodium (Chloride) 1,001 mls @ 0 mls/hr IV ASDIRECTED PRN; Protocol PRN Reason: ITCHING Ibuprofen (Motrin Bulk Bottle) 600 mg PO Q6H PRN PRN Reason: Pain Last Admin: 10/12/18 23:07 Dose: 1 bottle Methylergonovine Maleate (Methergine) 0.2 mg PO TID PRN PRN Reason: Bleeding Last Admin: 10/12/18 23:33 Dose: 0.2 mg Naloxone HCl (Narcan) 0.1 mg IVPUSH Q5M PRN PRN Reason: IF RESP RATE LESS THAN 6 Ondansetron HCl (Zofran Odt) 4 mg PO Q4H PRN PRN Reason: Nausea/Vomiting Sertraline HCl (Zoloft) 50 mg PO DAILY [facility] Sodium Chloride (Saline Flush) 10 ml FLUSH ASDIRECTED PRN PRN Reason: Keep Vein Open Witch Dunia (Tucks) 1 pad TOP ASDIRECTED PRN PRN Reason: Hemorrhoids Last Admin: 10/12/18 23:08 Dose: 1 box Discontinued Medications Acetaminophen (Tylenol) 650 mg PO Q4H PRN PRN Reason: Pain (Mild 1-3) and fever Last Admin: 10/12/18 20:37 Dose: 650 mg Acetaminophen (Tylenol Bulk Bottle) 325 mg PO Q4H PRN PRN Reason: Pain Last Admin: 10/12/18 23:07 Dose: 1 bottle Buspirone HCl (Buspar) 10 mg PO TID GAVINO Last Admin: 10/13/18 14:15 Dose: 10 mg Carboprost Tromethamine (Hemabate Ds) Confirm Administered Dose 250 mcg .ROUTE .STK-MED ONE Stop: 10/12/18 21:36 Last Admin: 10/12/18 21:51 Dose: Not Given Ephedrine Sulfate (Ephedrine Sulfate) Confirm Administered Dose 50 mg .ROUTE .STK-MED ONE Stop: 10/12/18 13:40 Last Admin: 10/12/18 20:19 Dose: Not Given Fentanyl (Sublimaze) 100 mcg IVPUSH ONETIME ONE Stop: 10/12/18 13:08 Last Admin: 10/12/18 13:13 Dose: 100 mcg Fentanyl (Sublimaze) Confirm Administered Dose 100 mcg .ROUTE .STK-MED ONE Stop: 10/12/18 14:02 Lactated Ringer's (Ringers, Lactated) 1,000 mls @ 999 mls/hr IV BOLUS ONE Stop: 10/12/18 12:14 Last Admin: 10/12/18 13:26 Dose: 999 mls/hr Ceftriaxone Sodium 1 gm/ (Sodium Chloride) 50 mls @ 100 mls/hr IV ONETIME ONE Stop: 10/12/18 13:29 Last Admin: 10/12/18 13:26 Dose: 100 mls/hr Oxytocin/Sodium Chloride (Pitocin In Ns 20 Units/1,000 Ml) 20 unit in 1,000 mls @ 6 mls/hr IV TITRATE GAVINO; Protocol Last Titration: 10/12/18 21:50 Dose: 125 mls/hr Oxytocin/Sodium Chloride (Pitocin In Ns 20 Units/1,000 Ml) 20 unit in 1,000 mls @ 999 mls/hr IV ONETIME ONE; Protocol Stop: 10/12/18 14:15 Last Admin: 10/13/18 18:40 Dose: Not Given Lactated Ringer's (Ringers, Lactated) 1,000 mls @ 100 mls/hr IV ASDIRECTED GAVINO Last Admin: 10/12/18 18:30 Dose: 100 mls/hr Ropivacaine (Naropin 0.2%) Confirm Administered Dose 100 mls @ as directed .ROUTE .STK-MED ONE Stop: 10/12/18 14:02 Ropivacaine (Naropin 0.2%) 100 mls @ 0 mls/hr EPIDUR ASDIRECTED GAVINO; Protocol Last Admin: 10/12/18 20:37 Dose: 12 mls/hr, 12 mls/hr Oxytocin/Sodium Chloride (Pitocin In Ns 20 Units/1,000 Ml) Confirm Administered Dose 20 unit in 1,000 mls @ as directed .ROUTE .STK-MED ONE Stop: 10/12/18 21:12 Last Admin: 10/12/18 22:33 Dose: Not Given Lidocaine HCl (Xylocaine 1%) Confirm Administered Dose 100 ml .ROUTE .STK-MED ONE Stop: 10/12/18 21:12 Last Admin: 10/12/18 22:33 Dose: Not Given Methylergonovine Maleate (Methergine) Confirm Administered Dose 0.2 mg .ROUTE .STK-MED ONE Stop: 10/12/18 21:36 Last Admin: 10/12/18 21:51 Dose: Not Given Methylergonovine Maleate (Methergine) 0.2 mg IM ONETIME STA Stop: 10/12/18 21:45 Last Admin: 10/12/18 22:33 Dose: 0.2 mg Misoprostol (Cytotec) Confirm Administered Dose 800 mcg .ROUTE .STK-MED ONE Stop: 10/12/18 21:36 Last Admin: 10/12/18 21:52 Dose: Not Given Sertraline HCl (Zoloft) 100 mg PO ONETIME ONE Stop: 10/13/18 11:01 Last Admin: 10/13/18 11:54 Dose: 100 mg - Infant Interaction Disposition, : [place] in Room with Family Infant Interaction: Holding Infant Feeding: Bottle Fed Infant Support Person: Significant Other - Recovery Exam Fundal Tone: Firm Fundal Level: At Umbilicus Fundal Placement: Left Lochia Amount: Moderate Lochia Color: Rubra/Red Perineum Description: Edematous, Hemorrhoids Other Perinuem Description: digital exam, repair intact. No hematoma, very swollen bottom Episiotomy/Laceration: Approximated Bladder Status: Voiding Urinary Elimination: Voided Other Urinary Elimination, : due to void - Exam General: Alert, Oriented HEENT: Pupils Equal Neck: Supple Lungs: Clear to Auscultation, Normal Respiratory Effort Cardiovascular: Regular Rate, Regular Rhythm GI/Abdominal Exam: Normal Bowel Sounds, Soft, Non-Tender, No Organomegaly, No Distention, No Abnormal Bruit, No Mass, Pelvis Stable Extremities: Normal Inspection, Normal Range of Motion, Non-Tender, No Pedal Edema, Normal Capillary Refill Skin: Warm, Dry, Intact Wound/Incisions: Healing Well Neurological: No New Focal Deficit Psy/Mental Status: Alert, Normal Affect, Normal Mood - Problem List & Annotations (1) First stage of labor established SNOMED Code(s): 449425676 Code(s): SMH9980 - Status: Acute Current Visit: Yes (2) SNOMED Code(s): 96209678 Code(s): Z34.90 - ENCNTR FOR SUPRVSN OF NORMAL , UNSP, UNSP TRIMESTER Status: Acute Current Visit: Yes Qualifiers: Weeks of gestation: 40 weeks Qualified Code(s): Z3A.40 - 40 weeks gestation of (3) Vaginal tear resulting from childbirth SNOMED Code(s): 631254311 Code(s): O71.4 - OBSTETRIC HIGH VAGINAL LACERATION ALONE Status: Acute Current Visit: Yes (4) Vaginal delivery SNOMED Code(s): 501844413 Code(s): O80 - ENCOUNTER FOR FULL-TERM UNCOMPLICATED DELIVERY Status: Acute Current Visit: Yes (5) Anxiety and depression SNOMED Code(s): 131913402 Code(s): F41.9 - ANXIETY DISORDER, UNSPECIFIED; F32.9 - MAJOR DEPRESSIVE DISORDER, SINGLE EPISODE, UNSPECIFIED Status: Acute Current Visit: Yes - Problem List Review Problem List Initiated/Reviewed/Updated: Yes - My Orders Last 24 Hours: My Active Orders 10/13/18 08:00 Ferrous Sulfate 325 mg PO WITHBREAKFAST 10/13/18 Breakfast Regular Diet [DIET] 10/14/18 09:00 Sertraline [Zoloft] 50 mg PO DAILY - Assessment Assessment:: 10/12/18 17 year old without complications bilateral labial tears with sulcus extensions, repaired, heavy bleeding initially. bottle feeding Asthma, stable 10/13/18 Doing well, mood anxious wants to start medication eating voiding mild discomfort Flow light very happy with baby 10/14/18 Didn't tell me she wasn't taking the Zoloft and I increased her dose yesterday, [place] agitated last night Decreased the dose to 50 mg and she will continue on that for the next 3-4 weeks before increasing again. No other problems Taking Iron supplement and to continue at home Encouraged Sitz bath, she didn't use the bath yesterday Cautioned about to much activity for the next two weeks. Reviewed self cares - Plan Plan:: 10/12/18 This 17 year old G1 presented with increasing contractions. She is 40 3/7 weeks based on LMP and US, DEEPIKA 10/09/18. vaginal check at 1222 3/80/-1. Over the past hour contractions have gotten increasingly stronger. Labs: ABO A pos, HIV neg, Rubella immune. Plan will keep and admit to observation Epidural then augment contractions with pitocin Anticipate a vaginal delivery later today. HGB and PLT pending 10/12/18 routine post cares CBC in Am, start iron in AM as well Ice to bottom until morning PHILIPP medications 24-48 hour stay. 10/13/18 Will start BuSpar and Zoloft today On iron and stool softener, HGB 9.4 Encouraged ambulation and sitz baths today Scripts written for anxiety and depression home in AM 10/14/18 Home today needs 6 week post visit Needs as we grow program, through public health started
[2018-10-14] MEDS ORDERED: Sertraline 50 MG Tab PO SCH (09:00)
== END 2018-10-14 11:15 | disposition home or self-care (01) | DRG 560 ==
LOC: JP.OBCHECK 10:40 → JP.OB 12:51 → OBSVTOIN 21:31 → JP.OB 21:31 → JP.MS 10-13 01:00
PROVIDERS: ADMIT Nurse Practitioner Family; ATTEND Nurse Practitioner Family
PROC: 0UQGXZZ Repair Vagina, External Approach (ICD-10-PCS; principal; 2018-10-12)
PROC: 0UQMXZZ Repair Vulva, External Approach (ICD-10-PCS; principal; 2018-10-12)
PROC: 10E0XZZ Delivery of Products of Conception, External Approach (ICD-10-PCS; principal; 2018-10-12)
PROC: 3E0R3BZ Introduction of Anesthetic Agent into Spinal Canal, Percutaneous Approach (ICD-10-PCS; 2018-10-12)
PROC: 00HU33Z Insertion of Infusion Device into Spinal Canal, Percutaneous Approach (ICD-10-PCS; 2018-10-12)
DX: O99.344 Other mental disorders complicating childbirth (principal); F32.9 Major depressive disorder, single episode, unspecified; F60.3 Borderline personality disorder; F41.9 Anxiety disorder, unspecified; O99.52 Diseases of the respiratory system complicating childbirth; J45.909 Unspecified asthma, uncomplicated; Z37.0 Single live birth; Z3A.40 40 weeks gestation of pregnancy; O75.3 Other infection during labor; O77.0 Labor and delivery complicated by meconium in amniotic fluid; O69.1XX0 Labor and delivery complicated by cord around neck, with compression, not applicable or unspecified; O71.4 Obstetric high vaginal laceration alone; Z79.899 Other long term (current) drug therapy; Z88.8 Allergy status to other drugs, medicaments and biological substances
CPT/HCPCS: 36415; 51702; 59409; 80305-QW; 81001; 85025; 85027; 99211; A9270-GY; J0696; J2210; J2590; J2795; J3010; J7050; J7120

== ENCOUNTER 2019-01-16 06:26 | Emergency (ER) | payer BC, MEDICAID ==
[2019-01-16] MEDS ORDERED: Lidocaine 2% Viscous Solution 15 ML Cup PO ONE (07:46)
[2019-01-16] MEDS ORDERED: Ketorolac 60 MG/2 ML SDV IM ONE (07:46)
--- NOTE | 2019-01-16 07:51 | EDM.PDOC ---
ED HPI GENERAL MEDICAL PROBLEM - General Chief Complaint: ENT Problem Stated Complaint: WISDOM TEETH PULLED NOW FEVER Time Seen by Provider: 01/16/19 07:35 Source of Information: Reports: Patient, Family History Limitations: Reports: No Limitations - History of Present Illness INITIAL COMMENTS - FREE TEXT/NARRATIVE: 18-year-old female had 3 wisdom teeth pulled 3 days ago, this morning has significant bilateral swelling, discomfort, and had a fever overnight. She is on amoxicillin, Advil and Tylenol with Codeine but is unable to swallow pills this morning. She did not ice down the jaw after her surgery. Her main complaint is swelling, discomfort, and inability to swallow. Onset: Gradual Duration: Day(s): (3 days since the surgery) Location: Reports: Face Worsens with: Reports: Other (Swallowing, talking, or moving jaws painful) Treatments CONSTRUCTION COORDINATOR: Reports: NSAIDS Dental Pain Score (Numeric/FACES): 8 - Related Data Allergies Allergy/AdvReac Type Severity Reaction Status Date / Time Corticosteroids Allergy Hives Verified 01/16/19 07:06 (Glucocorticoids) hydrocodone Allergy Hives Verified 01/16/19 07:07 Home Meds: Home Meds Albuterol/Ipratropium [Combivent Respimat] 1 puff INH Q4HR PRN 06/19/18 [History ] Acetaminophen with Codeine [Tylenol with Codeine #3 Tablet] 1 tab PO Q4H [History] Amoxicillin 1 tab PO TID 01/16/19 [History] Prazosin [Minpress] 1 mg PO DAILY 01/16/19 [History] Venlafaxine HCl [Venlafaxine ER] 37.5 mg PO BID 01/16/19 [History] clonazePAM [Clonazepam] 1 mg PO TID 01/16/19 [History] lamoTRIgine [Lamotrigine] 200 mg PO DAILY 01/16/19 [History] Past Medical History HEENT History: Reports: Allergic Rhinitis Respiratory History: Reports: Asthma WAGE HAND History: Reports: , Other (See Below) Other WAGE HAND History: ovarian cysts Musculoskeletal History: Reports: Fracture Other Musculoskeletal History: toe Neurological History: Reports: Concussion Psychiatric History: Reports: Anxiety, Depression, Psych Hospitalization(s), Suicide Attempt, Suicidal Ideation, Other (See Below) Other Psychiatric History: borderline personality Dermatologic History: Reports: Urticaria - Infectious Disease History Infectious Disease History: Reports: None - Past Surgical History HEENT Surgical History: Reports: Other (See Below) Other HEENT Surgeries/Procedures: wisdon teeth extraction x3 Social & Family History - Family History Family Medical History: Noncontributory - Tobacco Use Smoking Status *Q: Current Every Day Smoker Years of Tobacco use: 8 Packs/Tins Daily: 0.5 Used Tobacco, but Quit: No Second Hand Smoke Exposure: Yes - Caffeine Use Caffeine Use: Reports: Coffee Other Caffeine Use: 1 cup a day - Alcohol Use Days Per Week of Alcohol Use: 0 - Recreational Drug Use Recreational Drug Use: No ED ROS ENT - Review of Systems Review Of Systems: See Below Constitutional: Reports: Fever, Malaise HEENT: Reports: Throat Pain Respiratory: Denies: Shortness of Breath Cardiovascular: Denies: Chest Pain GI/Abdominal: Reports: Nausea. Denies: Vomiting Skin: Reports: Bruising (Slight bruising over the angles of the jaw bilaterally , somewhat worse on the left) Neurological: Denies: Headache ED EXAM, ENT - Physical Exam Exam: See Below Exam Limited By: No Limitations General Appearance: Alert, Mild Distress (Looks very uncomfortable, tearful) Eye Exam: Bilateral Eye: Other (Crying tears, normal hydration) Mouth/Throat: Other (She does have been local and gingival swelling bilaterally , somewhat worse on the left but surgical sites look good and the oropharynx is normal) Head: Atraumatic Respiratory/Chest: No Respiratory Distress, Lungs Clear Neurological: Alert, Oriented Psychiatric: Flat Affect Course - Vital Signs Last Recorded V/S: Last Vital Signs Temp 97.5 F 01/16/19 07:16 Pulse 114 H 01/16/19 07:16 Resp 16 01/16/19 07:16 BP 122/72 01/16/19 07:16 Pulse Ox 96 01/16/19 07:16 - Orders/Labs/Meds Meds: Medications Discontinued Medications Generic Name Dose Route Start Last Admin Trade Name Freq PRN Reason Stop Dose Admin Ketorolac Tromethamine 60 mg 01/16/19 07:46 01/16/19 07:55 Toradol IM 01/16/19 07:47 60 mg ONETIME ONE Administration Lidocaine HCl 15 ml 01/16/19 07:46 01/16/19 07:56 Xylocaine 2% Viscous PO 01/16/19 07:47 15 ml ONETIME ONE Administration Oxycodone/Acetaminophen 1 tab 01/16/19 08:04 01/16/19 08:09 Percocet 325-5 Mg PO 1 tab ONETIME PRN Administration Pain (moderate 4-6) - Re-Assessments/Exams Free Text/Narrative Re-Assessment/Exam: 01/16/19 07:50 Offered patient a dose of Solu-Medrol IV but she is "allergic to glucocorticoids ". I explained to her that that really isn't possible as it is a normal physiologic necessity for life but she was afraid to get any. She was given an injection of Toradol 60 mg IM, 15 mils of oral viscous lidocaine and then we will see if she can swallow a Percocet 5-10 minutes after the viscous lidocaine. 01/16/19 08:06 Patient felt significantly improved after the viscous lidocaine, she was then given 1 Percocet orally and was able to swallow the pill. She'll stop the Advil and Tylenol with codeine and be discharged with 10 doses of 10 mg Toradol to take every 6-8 hours and 10 Percocet for extra pain control. Also a prescription for viscous lidocaine to use every 3-4 hours. Return if worsening in the next 24-48 hours but she should start to improve. Departure - Departure Time of Disposition: 08:18 Disposition: Home, Self-Care 01 Clinical Impression: Postoperative pain - Discharge Information Instructions: Acute Pain, Adult Referrals: Hien Wild CNM [Primary Care Provider] - Forms: ED Department Discharge Care Plan Goals: Stop Advil and Tylenol with Codeine. Continue amoxicillin. Use viscous lidocaine every 3-4 hours to numb throat so you're able to take medications and food. Stay hydrated with small frequent amounts of fluid. Recheck in 24-48 hours if not starting to improve.
[2019-01-16] MEDS ORDERED: Acetaminophen/oxyCODONE 325-5 MG Tab PO PRN (08:04)
== END 2019-01-16 08:18 | disposition home or self-care (01) ==
LOC: JP.ED 06:26
DX: G89.18 Other acute postprocedural pain (principal); K08.89 Other specified disorders of teeth and supporting structures; J45.909 Unspecified asthma, uncomplicated; F41.9 Anxiety disorder, unspecified; F32.9 Major depressive disorder, single episode, unspecified; F17.210 Nicotine dependence, cigarettes, uncomplicated; Z88.5 Allergy status to narcotic agent; Z79.51 Long term (current) use of inhaled steroids; Z88.8 Allergy status to other drugs, medicaments and biological substances
CPT/HCPCS: 96372; 99283; A9270; J1885

== ENCOUNTER 2019-02-09 10:27 | Emergency (ER) | payer BC, MEDICAID ==
[2019-02-09] MEDS ORDERED: Sodium Chloride 0.9% 10 ML Syringe FLUSH PRN (11:22)
--- NOTE | 2019-02-09 11:24 | EDM.PDOC ---
ED HPI GENERAL MEDICAL PROBLEM - General Chief Complaint: ENT Problem Stated Complaint: right side tooth infectioin Time Seen by Provider: 02/09/19 11:24 Source of Information: Reports: Patient - History of Present Illness INITIAL COMMENTS - FREE TEXT/NARRATIVE: Alert 18 year old female presents with right lower jaw pain. Patient had right lower wisdom tooth extracted 3 weeks and was doing fairly well until about 5 days ago she noted slight discomfort, which has progressively worsened over the last 3 days despite Tylenol and Ibuprofen (last dosing in the evening). No OTC medications taken today. Patient has had slight fever and unable to sleep due to throbbing and severity of pain for the last 2-3 nights. Patient presents with significant other for evaluation. Patient has a 4 month old child at home. Right Lower Jaw Pain Score (Numeric/FACES): 8 - Related Data Allergies Allergy/AdvReac Type Severity Reaction Status Date / Time Corticosteroids Allergy Hives Verified 01/16/19 07:06 (Glucocorticoids) hydrocodone Allergy Hives Verified 01/16/19 07:07 Home Meds: Home Meds Albuterol/Ipratropium [Combivent Respimat] 1 puff INH Q4HR PRN 06/19/18 [History ] Acetaminophen with Codeine [Tylenol with Codeine #3 Tablet] 1 tab PO Q4H [History] Prazosin [Minpress] 1 mg PO DAILY 01/16/19 [History] Venlafaxine HCl [Venlafaxine ER] 75 mg PO BID 01/16/19 [History] clonazePAM [Clonazepam] 1 mg PO TID 01/16/19 [History] lamoTRIgine [Lamotrigine] 200 mg PO DAILY 01/16/19 [History] Amoxicillin/Potassium Clav [Augmentin 875-125 Tablet] 1 each PO BID 10 Days #20 tablet 02/09/19 [Rx] Naproxen [Naprosyn] 500 mg PO BID PRN 5 Days #10 tablet 02/09/19 [Rx] hydrOXYzine HCl [Hydroxyzine HCl] 25 mg PO Q6H PRN 5 Days #20 tablet 02/09/19 [ Rx] Past Medical History HEENT History: Reports: Allergic Rhinitis Respiratory History: Reports: Asthma 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: , Other (See Below) Other WELFARE CASE WORKER History: ovarian cysts Musculoskeletal History: Reports: Fracture Other Musculoskeletal History: toe Neurological History: Reports: Concussion Psychiatric History: Reports: Anxiety, Depression, Psych Hospitalization(s), Suicide Attempt, Suicidal Ideation, Other (See Below) Other Psychiatric History: borderline personality Dermatologic History: Reports: Urticaria - Infectious Disease History Infectious Disease History: Reports: None - Past Surgical History HEENT Surgical History: Reports: Other (See Below) Other HEENT Surgeries/Procedures: wisdon teeth extraction x3 Social & Family History - Family History Family Medical History: Noncontributory - Tobacco Use Smoking Status *Q: Current Every Day Smoker Years of Tobacco use: 8 Packs/Tins Daily: 0.5 - Caffeine Use Caffeine Use: Reports: Coffee Other Caffeine Use: 1 cup a day - Recreational Drug Use Recreational Drug Use: No ED ROS ENT - Review of Systems Review Of Systems: ROS reveals no pertinent complaints other than HPI. ED EXAM, ENT - Physical Exam Exam: See Below Exam Limited By: No Limitations General Appearance: Alert, WD/WN, Moderate Distress (right facial swelling, tearful and pain noted. ) Eye Exam: Bilateral Eye: EOMI, PERRL Ears: Normal External Exam, Normal Canal, Hearing Grossly Normal, TM Erythema ( right TM slight eryethema and fluid noted (likely reaction to dental concerns)) Mouth/Throat: Normal Inspection, Normal Lips, Normal Oropharynx, Normal Teeth, Dental Abcess (right lower gum line with fluctuance to palpation. Area is actively draining purulent fluid. ) Head: Normocephalic Neck: Normal Inspection, Supple, Non-Tender Respiratory/Chest: No Respiratory Distress, Lungs Clear, Normal Breath Sounds, No Accessory Muscle Use Cardiovascular: Normal Peripheral Pulses, Regular Rate, Rhythm, No Edema, No Gallop, No JVD, No Murmur, No Rub Neurological: Alert, Oriented, CN II-XII Intact, Normal Cognition, Normal Gait, No Motor/Sensory Deficits Psychiatric: Normal Affect, Tearful (due to pain and lack of sleep) Skin: Warm, Dry, Intact, Normal Color, No Rash ED ENT PROCEDURES - Additional/Other Procedure(s) Other (Free Text) Procedure(s): DENTAL NERVE BLOCK [Right] side Inferior Alveolar Nerve: (27G 1 1/2 Mandibular sulcus at pterygomandibular raphe ) Abscess (attempted but too much pain) (both side and stab), Patient was given suction to help with purulent drainage, blood and anesthetic taste. Right Inferior Alveolar Nerve block was performed with 0.5% Bupivacaine: Total volume 4 cc. Landmarks palpated 27 gauge needle used to place anesthetic. Patient did not tolerated well. Asked if she wanted me to proceed with klever- abscess block (patient stated yes) but did not tolerate at all. Stopped and warm compress given. Patient wanted a local anesthetic for additional injections then asked to be sedated. Patient was monitored in the department for 15-30 minutes. Patient had no adverse reactions and pain is improved at time of discharge. Course - Vital Signs Last Recorded V/S: Last Vital Signs Temp 37.2 C 02/09/19 10:43 Pulse 125 H 02/09/19 10:43 Resp 19 02/09/19 10:43 BP 118/77 02/09/19 10:43 Pulse Ox 91 L 02/09/19 10:43 - Orders/Labs/Meds Orders: Active Orders 24 hr Category Date Time Status Peripheral IV Care [RC] . DIRECTED Care 02/09/19 11:23 Inactive Meds: Medications Discontinued Medications Generic Name Dose Route Start Last Admin Trade Name Freq PRN Reason Stop Dose Admin Amoxicillin/Clavulanate Potassium 1 tab 02/09/19 12:29 02/09/19 12:48 Augmentin 875 Mg/125 Mg PO 02/09/19 12:30 1 tab ONETIME ONE Administration Bupivacaine HCl 10 ml 02/09/19 11:41 02/09/19 12:16 Sensorcaine-Mpf 0.5% INJECT 02/09/19 11:42 10 ml ONETIME ONE Administration Sodium Chloride 1,000 mls @ 500 mls/hr 02/09/19 11:30 Normal Saline IV ASDIRECTED GAVINO Ketorolac Tromethamine 60 mg 02/09/19 11:40 02/09/19 12:12 Toradol IM 02/09/19 11:41 60 mg ONETIME ONE Administration Lidocaine HCl 15 ml 02/09/19 12:39 Xylocaine 2% Viscous PO 02/09/19 12:40 ONETIME ONE Sodium Chloride 10 ml 02/09/19 11:22 Saline Flush FLUSH ASDIRECTED PRN Keep Vein Open Departure - Departure Time of Disposition: 13:04 Disposition: Home, Self-Care 01 Clinical Impression: Dental abscess, Mouth pain, Elevated blood pressure reading, Anxiety and depression - Discharge Information Prescriptions: Amoxicillin/Potassium Clav [Augmentin 875-125 Tablet] 1 each PO BID 10 Days #20 tablet hydrOXYzine HCl [Hydroxyzine HCl] 25 mg PO Q6H PRN 5 Days #20 tablet PRN Reason: Pain Naproxen [Naprosyn] 500 mg PO BID PRN 5 Days #10 tablet PRN Reason: inflammation Instructions: How to Take Your Blood Pressure, Hypertension Referrals: Hien Wild CNM [Primary Care Provider] - Forms: ED Department Discharge Additional Instructions: 1. Call Oral Surgeon, Dentist in am for recheck in 3-5 days to ensure improving. 2. Augmentin 875mg every am and pm x 10 days for dental infection with abscess. 3. Naproxen 500 mg every 12 hours for pain, swelling inflammation (with food). 4. Hydroxyzine 25 mg every 6 hours for anxiety, nausea, sleep and pain. 5. Warm compress 15-20 minute 3-4 times per day to increase blood flow to the area (increased concentration of antibiotic). 6. Return to ER if difficulty swallowing, breathing or neck pain in the next 48 -72 hours. - Problem List & Annotations (1) Anxiety and depression SNOMED Code(s): 144425819 Code(s): F41.9 - ANXIETY DISORDER, UNSPECIFIED; F32.9 - MAJOR DEPRESSIVE DISORDER, SINGLE EPISODE, UNSPECIFIED Status: Acute Current Visit: No (2) Dental abscess SNOMED Code(s): 787861411 Code(s): K04.7 - PERIAPICAL ABSCESS WITHOUT SINUS Status: Acute Current Visit: Yes (3) Mouth pain SNOMED Code(s): 773564452 Code(s): K13.79 - OTHER LESIONS OF ORAL MUCOSA Status: Acute Current Visit: Yes - My Orders Last 24 Hours: My Active Orders 02/09/19 11:23 Peripheral IV Care [RC] . DIRECTED - Assessment/Plan Last 24 Hours: My Active Orders 02/09/19 11:23 Peripheral IV Care [RC] . DIRECTED
[2019-02-09] MEDS ORDERED: Sodium Chloride 0.9% 1,000 ML IV SCH (11:30)
[2019-02-09] MEDS ORDERED: Ketorolac 60 MG/2 ML SDV IM ONE (11:40)
[2019-02-09] MEDS ORDERED: Bupivacaine 0.5% 10 ML SDV INJECT ONE (11:41)
[2019-02-09] MEDS ORDERED: Amoxicillin/Clavulanate K 875-125 MG Tab PO ONE (12:29)
[2019-02-09] MEDS ORDERED: Lidocaine 2% Viscous Solution 100 ML Bottle PO PRN (12:36)
[2019-02-09] MEDS ORDERED: Lidocaine 2% Viscous Solution 15 ML Cup PO ONE (12:39)
== END 2019-02-09 13:21 | disposition home or self-care (01) ==
LOC: JP.ED 10:27
DX: K04.7 Periapical abscess without sinus (principal); F32.9 Major depressive disorder, single episode, unspecified; F41.9 Anxiety disorder, unspecified; R03.0 Elevated blood-pressure reading, without diagnosis of hypertension; J45.909 Unspecified asthma, uncomplicated; F17.210 Nicotine dependence, cigarettes, uncomplicated; Z79.899 Other long term (current) drug therapy
CPT/HCPCS: 64400; 96372; 99283; A9270; J1885; J3490

== ENCOUNTER 2019-04-16 19:49 | Emergency (ER) | payer BC, MEDICAID ==
--- NOTE | 2019-04-16 21:04 | EDM.PDOC ---
ED HPI GENERAL MEDICAL PROBLEM - General Chief Complaint: Upper Extremity Injury/Pain Stated Complaint: RIGHT HAND, MIDDLE KNUCKLES INJURY Time Seen by Provider: 04/16/19 20:51 Source of Information: Reports: Patient History Limitations: Reports: No Limitations - History of Present Illness INITIAL COMMENTS - FREE TEXT/NARRATIVE: Patient presents for evaluation of an injury to the knuckles of the right hand sustained after she punched a wall approximately 1900 hrs. today. She states that she was taken off of all of her anxiety medications and had a panic attack and punched a wall at home. It was uncomfortable and her fingers felt tingly so she came for evaluation. No other injuries based on this incident tonight. Onset: Today, Sudden Duration: Hour(s): (1900 hours tonight) Location: Reports: Upper Extremity, Right Quality: Reports: Dull, Pressure Severity: Mild Improves with: Reports: None Worsens with: Reports: Movement Context: Reports: Trauma Associated Symptoms: Reports: No Other Symptoms Treatments DRIVER/REFUSE COLLECTOR: Reports: Cold Therapy - Related Data Allergies Allergy/AdvReac Type Severity Reaction Status Date / Time Corticosteroids Allergy Hives Verified 01/16/19 07:06 (Glucocorticoids) hydrocodone Allergy Hives Verified 01/16/19 07:07 Home Meds: Home Meds Albuterol/Ipratropium [Combivent Respimat] 1 puff INH Q4HR PRN 06/19/18 [History ] Acetaminophen with Codeine [Tylenol with Codeine #3 Tablet] 1 tab PO Q4H [History] Prazosin [Minpress] 1 mg PO DAILY 01/16/19 [History] Venlafaxine HCl [Venlafaxine ER] 75 mg PO BID 01/16/19 [History] Ziprasidone HCl [Geodon] 80 mg PO DAILY 04/16/19 [History] Past Medical History HEENT History: Reports: Allergic Rhinitis, Impaired Vision Respiratory History: Reports: Asthma 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: Reports: , Other (See Below) Other 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: ovarian cysts Musculoskeletal History: Reports: Fracture Other Musculoskeletal History: toe Neurological History: Reports: Concussion Psychiatric History: Reports: Anxiety, Depression, Psych Hospitalization(s), Suicide Attempt, Suicidal Ideation, Other (See Below) Other Psychiatric History: borderline personality Dermatologic History: Reports: Urticaria - Infectious Disease History Infectious Disease History: Reports: None - Past Surgical History HEENT Surgical History: Reports: Oral Surgery, Other (See Below) Other HEENT Surgeries/Procedures: wisdon teeth extraction x3 Social & Family History - Family History Family Medical History: Noncontributory - Tobacco Use Smoking Status *Q: Current Every Day Smoker Years of Tobacco use: 8 Packs/Tins Daily: 0.5 - Caffeine Use Caffeine Use: Reports: Coffee Other Caffeine Use: 1 cup a day Caffeine Use Comment: 3 cups per day - Recreational Drug Use Recreational Drug Use: Yes Drug Use in Last 12 Months: No Recreational Drug Type: Reports: Marijuana/Hashish Review of Systems - Review of Systems Review Of Systems: Comprehensive ROS is negative, except as noted in HPI. ED EXAM, GENERAL - Physical Exam Exam: See Below Exam Limited By: No Limitations General Appearance: Alert, Mild Distress Extremities: Joint Swelling (Right third and fourth distal metacarpal pain and swelling), Limited Range of Motion, Redness (Knuckles.) Neurological: Other (Tingling sensation over the dorsum of the hand and several fingers.) Course - Vital Signs Last Recorded V/S: Last Vital Signs Temp 36.7 C 04/16/19 20:22 Pulse 99 04/16/19 20:22 Resp 16 04/16/19 20:22 BP 137/89 04/16/19 20:22 Pulse Ox 99 04/16/19 20:22 - Orders/Labs/Meds Orders: Active Orders 24 hr Category Date Time Status Hand Comp Min 3V Rt [CR] Stat Exams 04/16/19 20:59 Ordered - Radiology Interpretation Free Text/Narrative:: X-ray of right hand ordered and reviewed by me shows no evidence of fracture. Departure - Departure Time of Disposition: 21:20 Disposition: Home, Self-Care 01 Condition: Good Clinical Impression: Contusion of hand, right - Discharge Information *PRESCRIPTION DRUG MONITORING PROGRAM REVIEWED*: Not Applicable *COPY OF PRESCRIPTION DRUG MONITORING REPORT IN PATIENT CHERYLE: Not Applicable Instructions: Hand Contusion Referrals: Hien Wild CNM [Primary Care Provider] - Forms: ED Department Discharge Additional Instructions: Cold packs to painful areas 20 minutes off and on as discussed. Elevate hand to reduce discomfort. Avoid painful movements. Symptoms should gradually go away over the next 5 or 7 days. Ibuprofen 800 mg 3 times a day or Aleve 440 mg twice a day as needed for pain. Recheck with primary care if things are not improving after one week. Return to ER if feeling worse in any way. Sepsis Event Note - Evaluation Sepsis Screening Result: No Definite Risk - Focused Exam Vital Signs: Vital Signs Temp Pulse Resp BP Pulse Ox 04/16/19 20:22 36.7 C 99 16 137/89 99 04/16/19 20:19 36.7 C 99 16 137/89 99 Date Exam was Performed: 04/16/19 Time Exam was Performed: 21:22 - My Orders Last 24 Hours: My Active Orders 04/16/19 20:59 Hand Comp Min 3V Rt [CR] Stat - Assessment/Plan Last 24 Hours: My Active Orders 04/16/19 20:59 Hand Comp Min 3V Rt [CR] Stat
--- NOTE | 2019-04-16 21:38 | CRLCR ---
Indication: Right distal metacarpal trauma. Technique: Three views of the right hand. Comparison: None Findings: Three views of the right hand were obtained. No fracture subluxation is identified. The joint spaces are well maintained. Impression: No acute fracture. Dictated by Juany Blackwood MD @ Apr 16 2019 9:36PM Signed by Dr. Juany Blackwood @ Apr 16 2019 9:37PM
== END 2019-04-16 21:23 | disposition home or self-care (01) ==
LOC: JP.ED 19:49
DX: S60.221A Contusion of right hand, initial encounter (principal); Z88.5 Allergy status to narcotic agent; F17.210 Nicotine dependence, cigarettes, uncomplicated; W22.09XA Striking against other stationary object, initial encounter
CPT/HCPCS: 73130-RT; 99283-25

== ENCOUNTER 2019-05-01 19:02 | Emergency (ER) | payer MEDICAID ==
[2019-05-01] MEDS ORDERED: Ketorolac 30 MG/ML SDV IVPUSH ONE (20:45)
[2019-05-01] MEDS ORDERED: LORazepam 2 MG/ML SDV IVPUSH ONE (20:45)
[2019-05-01] MEDS ORDERED: Sodium Chloride 0.9% 10 ML Syringe FLUSH PRN (20:45)
--- NOTE | 2019-05-01 21:13 | EDM.PDOC ---
ED HPI GENERAL MEDICAL PROBLEM - General Chief Complaint: Respiratory Problem Stated Complaint: SOB FEVER CHEST PAIN Time Seen by Provider: 05/01/19 20:35 Source of Information: Reports: Patient History Limitations: Reports: No Limitations - History of Present Illness INITIAL COMMENTS - FREE TEXT/NARRATIVE: 18-year-old female that this morning has developed left anterior pleuritic chest pain especially with breathing since this morning and as the day is gone on it has worsened and she is become very anxious and hyperventilating, feels she cannot breathe and tearful. No nausea or vomiting. She does have a history of anxiety. Onset: Gradual (Worsening over the past 24 hours) Location: Reports: Chest (Left anterior chest) Improves with: Reports: None Worsens with: Reports: Breathing, Movement Associated Symptoms: Reports: Chest Pain, Cough, Shortness of Breath. Denies: Confusion, Headaches Left Chest Pain Score (Numeric/FACES): 10 - Related Data Allergies Allergy/AdvReac Type Severity Reaction Status Date / Time Corticosteroids Allergy Hives Verified 05/01/19 20:11 (Glucocorticoids) hydrocodone Allergy Hives Verified 05/01/19 20:11 Home Meds: Home Meds Prazosin [Minpress] 3 mg PO BEDTIME 01/16/19 [History] ARIPiprazole [Abilify] 0.5 tab PO DAILY 05/01/19 [History] Albuterol Sulfate [Albuterol Sulfate Hfa] 1 - 2 puff INH Q4H PRN 05/01/19 [ History] Albuterol [Proventil Neb Soln] 3 ml INH Q4H PRN 05/01/19 [History] Amphetamine/Dextroamphetamine [Adderall XR] 1 cap PO DAILY 05/01/19 [History] Fluticasone Propion/Salmeterol [Fluticasone-Salmeterol 100-50] 1 puff INH Q12H 05/01/19 [History] QUEtiapine [SEROquel] 1 tab PO ASDIRECTED 05/01/19 [History] SUMAtriptan Succinate [Imitrex] 100 mg PO ASDIRECTED 05/01/19 [History] hydrOXYzine HCL [Hydroxyzine HCl] 1 - 2 tab PO ASDIRECTED 05/01/19 [History] lamoTRIgine [Lamotrigine] 100 mg PO BEDTIME 05/01/19 [History] Past Medical History HEENT History: Reports: Allergic Rhinitis, Impaired Vision Respiratory History: Reports: Asthma 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: , Other (See Below) Other PLASTERER MAINTENANCE History: ovarian cysts Musculoskeletal History: Reports: Fracture Other Musculoskeletal History: toe Neurological History: Reports: Concussion Psychiatric History: Reports: Anxiety, Depression, Psych Hospitalization(s), Suicide Attempt, Suicidal Ideation, Other (See Below) Other Psychiatric History: borderline personality Dermatologic History: Reports: Urticaria - Infectious Disease History Infectious Disease History: Reports: None - Past Surgical History HEENT Surgical History: Reports: Oral Surgery, Other (See Below) Other HEENT Surgeries/Procedures: wisdon teeth extraction x3 Social & Family History - Family History Family Medical History: Noncontributory - Tobacco Use Smoking Status *Q: Current Every Day Smoker Years of Tobacco use: 8 Packs/Tins Daily: 0.5 - Caffeine Use Caffeine Use: Reports: Coffee Other Caffeine Use: 1 cup a day Caffeine Use Comment: 3 cups per day - Recreational Drug Use Recreational Drug Use: No ED ROS GENERAL - Review of Systems Review Of Systems: See Below Constitutional: Reports: Malaise. Denies: Fever, Chills HEENT: Denies: Throat Pain Respiratory: Reports: Shortness of Breath, Pleuritic Chest Pain, Cough. Denies : Hemoptysis (Left anterior chest) Cardiovascular: Reports: Chest Pain GI/Abdominal: Denies: Abdominal Pain, Nausea, Vomiting Skin: Reports: No Symptoms Neurological: Denies: Headache Psychiatric: Reports: Anxiety ED EXAM, GENERAL - Physical Exam Exam: See Below Exam Limited By: No Limitations General Appearance: Alert, Anxious, Moderate Distress (Patient is extremely worked up, appears to be hyperventilating) Throat/Mouth: Normal Inspection Head: Atraumatic Respiratory/Chest: No Respiratory Distress, Lungs Clear Cardiovascular: Regular Rate, Rhythm, Tachycardia GI/Abdominal: Soft, Non-Tender Extremities: Normal Inspection Neurological: Alert Psychiatric: Anxious, Tearful Skin Exam: Warm, Dry Course - Vital Signs Last Recorded V/S: Last Vital Signs Temp 99.6 F 05/01/19 20:14 Pulse 125 H 05/01/19 20:39 Resp 34 H 05/01/19 20:14 BP 104/86 05/01/19 20:39 Pulse Ox 94 L 05/01/19 20:14 - Orders/Labs/Meds Orders: Active Orders 24 hr Category Date Time Status Saline Lock Insert [OM.PC] Routine Oth 05/01/19 20:45 Ordered Labs: Laboratory Tests 05/01/19 05/01/19 05/01/19 Range/Units 20:45 20:55 20:55 WBC 12.1 H (4.5-11.0) K/uL RBC 4.76 (3.30-5.50) M/uL Hgb 13.4 D (12.0-15.0) g/dL Hct 40.3 (36.0-48.0) % MCV 85 (80-98) fL MCH 28 (27-31) pg MCHC 33 (32-36) % Plt Count 293 (150-400) K/uL Neut % (Auto) 69 H (36-66) % Lymph % (Auto) 17 L (24-44) % [place] % (Auto) 8 H (2-6) % Eos % (Auto) 5 H (2-4) % Baso % (Auto) 1 (0-1) % Puncture Site Rt radial ABG pH 7.424 (7.350-7.450) ABG pCO2 32.1 L (35.0-42.0) mmHg ABG pO2 77.2 (75.0-100.0) mmHg ABG HCO3 20.6 L (22.0-26.0) mmol/L ABG Total CO2 18.2 L (21.0-25.0) mmol/L ABG O2 Saturation 95.7 (95.0-98.0) % ABG O2 Content 17.5 (15.0-23.0) %vol ABG Base Excess -2.5 mm/L ABG Hemoglobin 13.4 (12.0-16.0) g/dL ABG Oxyhemoglobin 92.4 % ABG Carboxyhemoglobin 2.7 H (0.0-1.6) % ABG Methemoglobin 0.7 % Gary Test Passed O2 Delivery Device Room air Sodium 137 L (140-148) mmol/L Potassium 4.0 (3.6-5.2) mmol/L Chloride 101 (100-108) mmol/L Carbon Dioxide 23 (21-32) mmol/L Anion Gap 17.0 H (5.0-14.0) mmol/L BUN 10 (7-18) mg/dL Creatinine 0.7 (0.6-1.0) mg/dL Est Cr Clr Drug Dosing 133.98 mL/min Estimated GFR (MDRD) > 60 (>60) Glucose 99 (74-106) mg/dL Calcium 8.5 (8.5-10.1) mg/dL Total Bilirubin 0.2 (0.2-1.0) mg/dL AST 12 L (15-37) U/L ALT 21 (12-78) U/L Alkaline Phosphatase 94 (46-116) U/L Total Protein 7.7 (6.4-8.2) g/dL Albumin 3.7 (3.4-5.0) g/dL Globulin 4.0 H (2.3-3.5) g/dL Albumin/Globulin Ratio 0.9 L (1.2-2.2) Urine Opiates Screen (NEGATIVE) Ur Oxycodone Screen (NEGATIVE) Urine Methadone Screen (NEGATIVE) Ur Propoxyphene Screen (NEGATIVE) Ur Barbiturates Screen (NEGATIVE) Ur Tricyclics Screen (NEGATIVE) Ur Phencyclidine Scrn (NEGATIVE) Ur Amphetamine Screen (NEGATIVE) U Methamphetamines Scrn (NEGATIVE) Urine MDMA Screen (NEGATIVE) U Benzodiazepines Scrn (NEGATIVE) U Cocaine Metab Screen (NEGATIVE) U Marijuana (THC) Screen (NEGATIVE) 05/01/19 Range/Units 21:13 WBC (4.5-11.0) K/uL RBC (3.30-5.50) M/uL Hgb (12.0-15.0) g/dL Hct (36.0-48.0) % MCV (80-98) fL MCH (27-31) pg MCHC (32-36) % Plt Count (150-400) K/uL Neut % (Auto) (36-66) % Lymph % (Auto) (24-44) % [place] % (Auto) (2-6) % Eos % (Auto) (2-4) % Baso % (Auto) (0-1) % Puncture Site ABG pH (7.350-7.450) ABG pCO2 (35.0-42.0) mmHg ABG pO2 (75.0-100.0) mmHg ABG HCO3 (22.0-26.0) mmol/L ABG Total CO2 (21.0-25.0) mmol/L ABG O2 Saturation (95.0-98.0) % ABG O2 Content (15.0-23.0) %vol ABG Base Excess mm/L ABG Hemoglobin (12.0-16.0) g/dL ABG Oxyhemoglobin % ABG Carboxyhemoglobin (0.0-1.6) % ABG Methemoglobin % Gary Test O2 Delivery Device Sodium (140-148) mmol/L Potassium (3.6-5.2) mmol/L Chloride (100-108) mmol/L Carbon Dioxide (21-32) mmol/L Anion Gap (5.0-14.0) mmol/L BUN (7-18) mg/dL Creatinine (0.6-1.0) mg/dL Est Cr Clr Drug Dosing mL/min Estimated GFR (MDRD) (>60) Glucose (74-106) mg/dL Calcium (8.5-10.1) mg/dL Total Bilirubin (0.2-1.0) mg/dL AST (15-37) U/L ALT (12-78) U/L Alkaline Phosphatase (46-116) U/L Total Protein (6.4-8.2) g/dL Albumin (3.4-5.0) g/dL Globulin (2.3-3.5) g/dL Albumin/Globulin Ratio (1.2-2.2) Urine Opiates Screen Negative (NEGATIVE) Ur Oxycodone Screen Negative (NEGATIVE) Urine Methadone Screen Negative (NEGATIVE) Ur Propoxyphene Screen Negative (NEGATIVE) Ur Barbiturates Screen Negative (NEGATIVE) Ur Tricyclics Screen Negative (NEGATIVE) Ur Phencyclidine Scrn Negative (NEGATIVE) Ur Amphetamine Screen Presumptive positive H (NEGATIVE) U Methamphetamines Scrn Negative (NEGATIVE) Urine MDMA Screen Negative (NEGATIVE) U Benzodiazepines Scrn Presumptive positive H (NEGATIVE) U Cocaine Metab Screen Negative (NEGATIVE) U Marijuana (THC) Screen Negative (NEGATIVE) Meds: Medications Discontinued Medications Generic Name Dose Route Start Last Admin Trade Name Freq PRN Reason Stop Dose Admin Ketorolac Tromethamine 30 mg 05/01/19 20:45 05/01/19 21:04 Toradol IVPUSH 05/01/19 20:46 30 mg ONETIME ONE Administration Lorazepam 1 mg 05/01/19 20:45 05/01/19 21:00 Ativan IVPUSH 05/01/19 20:46 1 mg ONETIME ONE Administration Sodium Chloride 10 ml 05/01/19 20:45 05/01/19 21:05 Saline Flush FLUSH 10 ml ASDIRECTED PRN Administration Keep Vein Open - Re-Assessments/Exams Free Text/Narrative Re-Assessment/Exam: 05/02/19 02:35 ABGs were drawn which were basically normal. CBC and CMP were also obtained along with a two-view chest x-ray. The patient was given 30 mg of IV Toradol and 1 mg of IV Ativan. Within 30 minutes her symptoms basically had resolved, she calm down and was breathing normal. Chest x-ray was normal, CBC and CMP were generally normal. She was discharged with a diagnosis of pleurisy and anxiety. Departure - Departure Time of Disposition: 22:14 Disposition: Home, Self-Care 01 Clinical Impression: Pleurisy, Anxiety about health - Discharge Information Instructions: Pleurisy, [id number] Referrals: Hien Wild CNM [Primary Care Provider] - Forms: ED Department Discharge Care Plan Goals: Regular dose of ibuprofen and naproxen will be helpful for the next few days, and increase activity as tolerated. Avoid smoking, and return if worsening such as fever or difficulty breathing. Sepsis Event Note - Evaluation Sepsis Screening Result: Possible Sepsis Risk - Focused Exam Vital Signs: Vital Signs Temp Pulse Resp BP Pulse Ox 05/01/19 20:39 125 H 104/86 05/01/19 20:14 99.6 F 121 H 34 H 115/81 94 L Date Exam was Performed: 05/02/19 Time Exam was Performed: 02:34 - My Orders Last 24 Hours: My Active Orders 05/01/19 20:45 Saline Lock Insert [OM.PC] Routine - Assessment/Plan Last 24 Hours: My Active Orders 05/01/19 20:45 Saline Lock Insert [OM.PC] Routine
--- NOTE | 2019-05-01 21:45 | CRLCR ---
Indication: Dyspnea. Technique: PA and lateral views the chest. Comparison: None Findings: The heart is normal in size. The lungs are clear. No infiltrate, pleural effusion, or pneumothorax is identified. Impression: No acute cardiopulmonary process Dictated by Juany Blackwood MD @ May 01 2019 9:43PM Signed by Dr. Juany Blackwood @ May 01 2019 9:43PM
== END 2019-05-01 22:14 | disposition home or self-care (01) ==
LOC: JP.ED 19:02
DX: R09.1 Pleurisy (principal); F41.9 Anxiety disorder, unspecified; J45.909 Unspecified asthma, uncomplicated; F32.9 Major depressive disorder, single episode, unspecified; F17.210 Nicotine dependence, cigarettes, uncomplicated; Z88.5 Allergy status to narcotic agent; Z88.8 Allergy status to other drugs, medicaments and biological substances; Z79.899 Other long term (current) drug therapy
CPT/HCPCS: 36600; 71046; 80053; 80305; 82803; 85025; 96374; 96375; 99285; J1885; J2060

== ENCOUNTER 2019-11-11 18:50 | Emergency (ER) | payer OTHER, MEDICAID ==
--- NOTE | 2019-11-11 19:22 | EDM.PDOC ---
ED HPI GENERAL MEDICAL PROBLEM - General Chief Complaint: Headache Stated Complaint: MIGRAINE Time Seen by Provider: 11/11/19 19:22 Source of Information: Reports: Patient History Limitations: Reports: No Limitations - History of Present Illness INITIAL COMMENTS - FREE TEXT/NARRATIVE: 19 years old female patient presented to the ER with a chief complaint of migraine headache has been going on for almost 2 weeks. Intermittent. Generalized dull aching pain. Denies any neck pain or back pain. Typical for her migraine headache. Associated with sensitivity to light and noise. Associated with nausea and vomited once. Denies any cough or fever. Denies any focal weakness or numbness anywhere. Denies any head trauma or injury. Denies any chest pain shortness breath. Denies any abdominal pain diarrhea or constipation. Denies any urinary symptom. Has been taking Tylenol and ibuprofen and was seen to be helping but not today. Denies being Headache Pain Score (Numeric/FACES): 10 - Related Data Allergies Allergy/AdvReac Type Severity Reaction Status Date / Time Corticosteroids Allergy Hives Verified 11/11/19 19:17 (Glucocorticoids) hydrocodone Allergy Hives Verified 11/11/19 19:17 Home Meds: Home Meds Prazosin [Minpress] 3 mg PO BEDTIME 01/16/19 [History] Albuterol Sulfate [Albuterol Sulfate Hfa] 1 - 2 puff INH Q4H PRN 05/01/19 [History] Albuterol [Proventil Neb Soln] 3 ml INH Q4H PRN 05/01/19 [History] Amphetamine/Dextroamphetamine [Adderall XR] 1 cap PO DAILY 05/01/19 [History] Fluticasone Propion/Salmeterol [Fluticasone-Salmeterol 100-50] 1 puff INH Q12H 05/01/19 [History] hydrOXYzine HCL [Hydroxyzine HCl] 1 - 2 tab PO ASDIRECTED 05/01/19 [History] lamoTRIgine [Lamotrigine] 100 mg PO BEDTIME 05/01/19 [History] Venlafaxine HCl 75 mg PO BEDTIME 11/11/19 [History] Venlafaxine HCl 100 mg PO DAILY 11/11/19 [History] busPIRone [Buspar] 10 mg PO TID 11/11/19 [History] Past Medical History HEENT History: Reports: Allergic Rhinitis, Impaired Vision Respiratory History: Reports: Asthma 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: , Other (See Below) Other ON SITE PROPERTY MANAGER History: ovarian cysts Musculoskeletal History: Reports: Fracture Other Musculoskeletal History: toe Neurological History: Reports: Concussion Psychiatric History: Reports: Anxiety, Depression, Psych Hospitalization(s), Suicide Attempt, Suicidal Ideation, Other (See Below) Other Psychiatric History: borderline personality Dermatologic History: Reports: Urticaria - Infectious Disease History Infectious Disease History: Reports: None - Past Surgical History HEENT Surgical History: Reports: Oral Surgery, Other (See Below) Other HEENT Surgeries/Procedures: wisdon teeth extraction x3 Social & Family History - Family History Family Medical History: Noncontributory - Tobacco Use Smoking Status *Q: Current Every Day Smoker Years of Tobacco use: 10 Packs/Tins Daily: 0.5 - Caffeine Use Caffeine Use: Reports: None Other Caffeine Use: 1 cup a day Caffeine Use Comment: 3 cups per day - Recreational Drug Use Recreational Drug Use: No ED ROS GENERAL - Review of Systems Review Of Systems: Comprehensive ROS is negative, except as noted in HPI. - Physical Exam Exam: See Below Exam Limited By: No Limitations General Appearance: Alert, WD/WN, No Apparent Distress Ears: Normal External Exam, Normal Canal, Hearing Grossly Normal, Normal TMs Nose: Normal Inspection, Normal Mucosa, No Blood Throat/Mouth: Normal Inspection, Normal Lips, Normal Teeth, Normal Gums, Normal Oropharynx, Normal Voice, No Airway Compromise Head Exam: Atraumatic, Normocephalic Neck: Normal Inspection, Supple, Non-Tender, Full Range of Motion Respiratory/Chest: No Respiratory Distress, Lungs Clear, Normal Breath Sounds, No Accessory Muscle Use, Chest Non-Tender Cardiovascular: Normal Peripheral Pulses, Regular Rate, Rhythm, No Edema, No Gallop, No JVD, No Murmur, No Rub GI/Abdominal: Normal Bowel Sounds, Soft, Non-Tender, No Organomegaly, No Distention, No Abnormal Bruit, No Mass Neuro Exam (Abbreviated): Alert, Oriented, CN II-XII Intact, Normal Cognition, Normal Gait, Normal Reflexes, No Motor/Sensory Deficits Extremities: Normal Inspection, Normal Range of Motion, Non-Tender, No Pedal Edema, Normal Capillary Refill Course - Vital Signs Last Recorded V/S: Last Vital Signs Temp 35.7 C L 11/11/19 19:13 Pulse 82 11/11/19 19:13 Resp 16 11/11/19 19:13 BP 136/91 H 11/11/19 19:13 Pulse Ox 95 11/11/19 19:13 - Orders/Labs/Meds Meds: Medications Discontinued Medications Generic Name Dose Route Start Last Admin Trade Name Jose L PRN Reason Stop Dose Admin Diphenhydramine HCl 50 mg 11/11/19 19:31 11/11/19 19:51 Benadryl IVPUSH 11/11/19 19:32 50 mg ONETIME ONE Administration Hydromorphone HCl 1 mg 11/11/19 20:30 11/11/19 20:34 Dilaudid IVPUSH 11/11/19 20:31 1 mg ONETIME ONE Administration Sodium Chloride 1,000 mls @ 999 mls/hr 11/11/19 19:30 11/11/19 19:51 Normal Saline IV 11/11/19 20:30 999 mls/hr .BOLUS STA Administration Ketorolac Tromethamine 30 mg 11/11/19 19:31 11/11/19 19:51 Toradol IVPUSH 11/11/19 19:32 30 mg ONETIME ONE Administration Lorazepam 1 mg 11/11/19 21:09 11/11/19 21:21 Ativan IVPUSH 11/11/19 21:10 1 mg ONETIME ONE Administration Ondansetron HCl 4 mg 11/11/19 19:31 11/11/19 19:51 Zofran IVPUSH 11/11/19 19:32 4 mg ONETIME ONE Administration - Re-Assessments/Exams Free Text/Narrative Re-Assessment/Exam: 11/11/19 19:36 Patient was seen and examined shortly after arrival. Stable. Given 1 L normal saline bolus, 30 mg IV Toradol, 4 mg IV Zofran, 50 mg IV Benadryl. Some improvement but not much. Given 1 mg IV Dilaudid. Now she said she is feeling a little better. Given 1 mg IV Ativan with further improvement. CT head unremarkable. Advised to rest and stay well-hydrated. Close follow-up with PCP tomorrow. Come back for any concern or any worsening symptom. Patient agrees with the plan. Stable for discharge. 11/11/19 21:18 11/11/19 21:50 Departure - Departure Time of Disposition: 21:50 Disposition: Home, Self-Care 01 Condition: Good Clinical Impression: Migraine - Discharge Information Referrals: Hien Wild CNM [Primary Care Provider] - Forms: ED Department Discharge Sepsis Event Note (ED) - Evaluation Sepsis Screening Result: No Definite Risk - Focused Exam Vital Signs: Vital Signs Temp Pulse Resp BP Pulse Ox 11/11/19 19:13 35.7 C L 82 16 136/91 H 95 - Assessment/Plan Plan: Advised to rest and stay well-hydrated. Close follow-up with PCP. Come back for any concern or any worsening symptom. Patient agrees with the plan.
[2019-11-11] MEDS ORDERED: Sodium Chloride 0.9% 1,000 ML IV STA (19:30)
[2019-11-11] MEDS ORDERED: diphenhydrAMINE 50 MG/ML SDV IVPUSH ONE (19:31)
[2019-11-11] MEDS ORDERED: Ondansetron 4 MG/2 ML SDV IVPUSH ONE (19:31)
[2019-11-11] MEDS ORDERED: Ketorolac 30 MG/ML SDV IVPUSH ONE (19:31)
[2019-11-11] MEDS ORDERED: HYDROmorphone 1 MG/ML Syringe IVPUSH ONE (20:30)
--- NOTE | 2019-11-11 20:53 | CRLCT ---
INDICATION: Migraine. TECHNIQUE: CT head without contrast. COMPARISON: None. FINDINGS: CSF spaces: Within normal limits. Brain parenchyma: The tai-white differentiation is normal. No sign of mass, hemorrhage, or midline shift. Skull base and calvarium: The visualized paranasal sinuses and mastoid air cells demonstrate no acute or significant findings. The visualized orbits are grossly unremarkable. No skull fractures. IMPRESSION: No acute intracranial abnormality. Please note that all CT scans at this facility use dose modulation, iterative reconstruction, and/or weight-based dosing when appropriate to reduce radiation dose to as low as reasonably achievable. Dictated by Vladimir Youssef MD @ Nov 11 2019 8:50PM Signed by Dr. Vladimir Youssef @ Nov 11 2019 8:53PM
[2019-11-11] MEDS ORDERED: LORazepam 2 MG/ML SDV IVPUSH ONE (21:09)
== END 2019-11-11 22:11 | disposition home or self-care (01) ==
LOC: JP.ED 18:50
DX: G43.909 Migraine, unspecified, not intractable, without status migrainosus (principal); J45.909 Unspecified asthma, uncomplicated; F41.9 Anxiety disorder, unspecified; F32.9 Major depressive disorder, single episode, unspecified; F17.210 Nicotine dependence, cigarettes, uncomplicated; Z88.5 Allergy status to narcotic agent; Z88.8 Allergy status to other drugs, medicaments and biological substances; Z79.899 Other long term (current) drug therapy
CPT/HCPCS: 70450; 96361; 96374; 96375; 99284; J1170; J1200; J1885; J2060; J2405; J7030; 99283

== ENCOUNTER 2019-11-12 19:54 | Emergency (ER) | payer OTHER, MEDICAID ==
[2019-11-12] MEDS ORDERED: Ketorolac 30 MG/ML SDV IVPUSH ONE (20:19)
[2019-11-12] MEDS ORDERED: methylPREDNISolone Sodium Succinate 125 MG/2 ML SDV IVPUSH ONE (20:19)
[2019-11-12] MEDS ORDERED: LORazepam 2 MG/ML SDV IVPUSH ONE (20:20)
--- NOTE | 2019-11-12 20:24 | EDM.PDOC ---
ED HPI GENERAL MEDICAL PROBLEM - General Chief Complaint: Headache Stated Complaint: MIGRAINE Time Seen by Provider: 11/12/19 20:05 Source of Information: Reports: Patient History Limitations: Reports: No Limitations - History of Present Illness INITIAL COMMENTS - FREE TEXT/NARRATIVE: 19-year-old female with chronic headaches, presents for the second day in a row with a headache that starts at the upper aspect of her neck posteriorly, radiating over the top and into around her eyes. She is photophobic and nauseated, last emesis was 3 hours ago. She received IV fluids last night, IV Dilaudid IV Ativan IV Toradol and had enough relief to go home but it started worsening shortly after and has been bothering her all day. She will not see her neurologist in [place] because "she does not listen to me". Onset: Unknown/Unsure (Symptoms have been waxing and waning for weeks) Associated Symptoms: Reports: Headaches, Nausea/Vomiting. Denies: Confusion, Chest Pain, Fever/Chills, Shortness of Breath Occipital Headache Pain Score (Numeric/FACES): 10 - Related Data Allergies Allergy/AdvReac Type Severity Reaction Status Date / Time Corticosteroids Allergy Hives Verified 11/11/19 19:17 (Glucocorticoids) hydrocodone Allergy Hives Verified 11/11/19 19:17 Home Meds: Home Meds Prazosin [Minpress] 3 mg PO BEDTIME 01/16/19 [History] Albuterol Sulfate [Albuterol Sulfate Hfa] 1 - 2 puff INH Q4H PRN 05/01/19 [Hi story] Albuterol [Proventil Neb Soln] 3 ml INH Q4H PRN 05/01/19 [History] Amphetamine/Dextroamphetamine [Adderall XR] 1 cap PO DAILY 05/01/19 [History] Fluticasone Propion/Salmeterol [Fluticasone-Salmeterol 100-50] 1 puff INH Q12H 05/01/19 [History] hydrOXYzine HCL [Hydroxyzine HCl] 1 - 2 tab PO ASDIRECTED 05/01/19 [History] lamoTRIgine [Lamotrigine] 100 mg PO BEDTIME 05/01/19 [History] Venlafaxine HCl 75 mg PO BEDTIME 11/11/19 [History] Venlafaxine HCl 100 mg PO DAILY 11/11/19 [History] busPIRone [Buspar] 10 mg PO TID 11/11/19 [History] Past Medical History HEENT History: Reports: Allergic Rhinitis, Impaired Vision Respiratory History: Reports: Asthma [employer] SCI[employer] TE[employer]ER History: Reports: , Other (See Below) 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 Musculoskeletal History: Reports: Fracture Other Musculoskeletal History: toe Neurological History: Reports: Concussion Psychiatric History: Reports: Anxiety, Depression, Psych Hospitalization(s), Suicide Attempt, Suicidal Ideation, Other (See Below) Other Psychiatric History: borderline personality Dermatologic History: Reports: Urticaria - Infectious Disease History Infectious Disease History: Reports: None - Past Surgical History HEENT Surgical History: Reports: Oral Surgery, Other (See Below) Other HEENT Surgeries/Procedures: wisdon teeth extraction x3 Social & Family History - Family History Family Medical History: Noncontributory - Tobacco Use Smoking Status *Q: Current Every Day Smoker Years of Tobacco use: 9 Packs/Tins Daily: 0.5 - Caffeine Use Caffeine Use: Reports: Coffee Other Caffeine Use: 1 cup a day Caffeine Use Comment: 3 cups per day ED ROS GENERAL - Review of Systems Review Of Systems: See Below Constitutional: Reports: Malaise, Decreased Appetite. Denies: Fever, Chills HEENT: Reports: Vision Change (Some intermittent blurry vision) Respiratory: Reports: No Symptoms GI/Abdominal: Reports: Nausea, Vomiting. Denies: Abdominal Pain Skin: Reports: No Symptoms Psychiatric: Reports: Depression - Physical Exam Exam: See Below Exam Limited By: No Limitations General Appearance: Alert, Mild Distress (Looks fairly uncomfortable, lying in the dark) Eye Exam: Bilateral Eye: EOMI, PERRL Head Exam: Atraumatic, Other (Some increased pain with palpation of the occipital muscles) Neck: Supple Respiratory/Chest: No Respiratory Distress Neuro Exam (Abbreviated): Alert, Oriented, No Motor/Sensory Deficits Psychiatric: Flat Affect Skin Exam: Warm, Dry Course - Vital Signs Last Recorded V/S: Last Vital Signs Temp 97.5 F 11/12/19 20:06 Pulse 95 11/12/19 22:13 Resp 18 11/12/19 20:06 BP 132/80 11/12/19 22:13 Pulse Ox 95 11/12/19 22:13 - Orders/Labs/Meds Meds: Medications Discontinued Medications Generic Name Dose Route Start Last Admin Trade Name Jose L PREvelyn Reason Stop Dose Admin Ketorolac Tromethamine 30 mg 11/12/19 20:19 11/12/19 20:31 Toradol IVPUSH 11/12/19 20:20 30 mg ONETIME ONE Administration Lorazepam 1 mg 11/12/19 20:20 11/12/19 20:31 Ativan IVPUSH 11/12/19 20:21 1 mg ONETIME ONE Administration Methylprednisolone Sodium Succinate 125 mg 11/12/19 20:19 11/12/19 20:39 Solu-Medrol IVPUSH 11/12/19 20:20 125 mg ONETIME ONE Administration - Re-Assessments/Exams Free Text/Narrative Re-Assessment/Exam: 11/12/19 20:47 Explained to the patient and I went through her medications last night and the only thing she did not receive was steroids. Initially she agreed, but when we went to give her the Solu-Medrol she says she is allergic to "corticosteroids". I am not sure why she did not mention that initially. She said it was when she was 14 after getting a cocktail of medications. I do not believe she is allergic to steroids, and we will try 125 mg of IV Solu-Medrol along with 1 mg of Ativan and 30 mg of Toradol. I do not feel she needs IV fluids. She has had no active emesis while in the emergency room. 11/12/19 22:20 Patient was resting quietly after the medications and did not have any reactions. She was still complaining of a headache but I do not see a need for further medications. She did have a CT of her head 2 days ago, I asked her why she did not mention that when we were talking about scanning her head and she said she "forgot she had one". She had no active emesis or nausea while in the emergency room for over 2 hours. She can follow-up with the clinic tomorrow if not improving satisfactorily. Departure - Departure Time of Disposition: 22:30 Disposition: Home, Self-Care 01 Clinical Impression: Chronic daily headache - Discharge Information Instructions: Migraine Headache, [id number] Referrals: Hien Wild CNM [Primary Care Provider] - Forms: ED Department Discharge Care Plan Goals: Rest tonight, continue your regular medications and talk to your primary provider or clinic in the next 24 to 48 hours if not improving satisfactorily. Sepsis Event Note (ED) - Evaluation Sepsis Screening Result: No Definite Risk - Focused Exam Vital Signs: Vital Signs Temp Pulse Resp BP Pulse Ox 11/12/19 22:13 95 132/80 95 11/12/19 21:31 81 133/77 94 L 11/12/19 20:58 85 128/85 96 11/12/19 20:06 97.5 F 94 18 152/91 H 93 L 11/12/19 20:02 97.5 F 94 18 152/91 H 93 L
== END 2019-11-12 22:31 | disposition home or self-care (01) ==
LOC: JP.ED 19:54
DX: R51 Headache (principal); J45.909 Unspecified asthma, uncomplicated; F41.9 Anxiety disorder, unspecified; F32.9 Major depressive disorder, single episode, unspecified; F17.210 Nicotine dependence, cigarettes, uncomplicated; Z88.5 Allergy status to narcotic agent; Z88.8 Allergy status to other drugs, medicaments and biological substances; Z79.899 Other long term (current) drug therapy
CPT/HCPCS: 96374; 96375; 99284; J1885; J2060; J2930